=== PATIENT | female | born 1955 | race Caucasian/White ===

== ENCOUNTER 2016-11-02 15:12 | Emergency (ER) | payer OTHER, MEDICARE ==
[2016-11-02 15:19] VITALS: BMI 22.4
--- NOTE | 2016-11-02 16:17 | PDOC ---
History of Present Illness - General History Source: Patient Exam Limitations: No Limitations <Wendy Simpson - Last Filed: 11/02/16 18:15> <Zander Tejada - Last Filed: 11/02/16 19:52> - General Chief Complaint: Chest Pain Stated Complaint: CHEST PAIN Time Seen by Provider: 11/02/16 15:37 - History of Present Illness Initial Comments: CHIEF COMPLAINT: 61 y/o afebrile female with PMH hypothyroidism, anxiety, depression, fibromyalgia (on fentanyl patch and PO oxycodone) c/o chest pain since last night. HISTORY OF PRESENT ILLNESS: The patient states she had acid reflex last night and started feeling left sided chest pain. She states it's a constant dull pain that is worsened with deep inspiration. She states her reflux has subsided. She denies f/c, n/v/d, cough, SOB, abd pain, back pain, hematuria, dysuria. PCP is Dr. Pagan Vital signs on arrival are notable for BP of 91/50. REVIEW OF SYSTEMS: GENERAL/CONSTITUTIONAL: No fever/chills. No weakness. No weight change. HEAD, EYES, EARS, NOSE AND THROAT: No change in vision. No ear pain or discharge. No sore throat. CARDIOVASCULAR: +chest pain. No shortness of breath. RESPIRATORY: No cough, wheezing, or hemoptysis. GASTROINTESTINAL: No abd pain, nausea, vomiting, diarrhea. GENITOURINARY: No dysuria, frequency, or change in urination. MUSCULOSKELETAL: No joint or muscle swelling or pain. No neck or back pain. SKIN: No rash or easy bruising. NEUROLOGIC: No headache, vertigo, loss of consciousness, or loss of sensation. PHYSICAL EXAM: GENERAL: The patient is awake, alert, and fully oriented, in no acute distress. She is well appearing, ambulatory, in NAD or obvious discomfort. HEAD: Normal with no signs of trauma. ENT: Pupils equal, round and reactive to light, extraocular movements intact, sclera anicteric, conjunctiva clear. Neck supple. LUNGS: Clear to auscultation bilaterally. Normal excursion. No respiratory distress or use of accessory muscles. CV: RRR, S1/S2, no MRG. Cap refill < 2 sec. CHEST WALL: Reproducible chest pain with palpation of left sternal border ABDOMEN: Soft, non-distended, non-tender even to deep palpation, no hepatomegaly or splenomegaly, no masses. EXTREMITIES: Normal range of motion, no edema. NEUROLOGICAL: Normal speech, normal gait. CN II-XII grossly intact. PSYCH: Flat affect SKIN: Warm, dry, normal turgor, no rashes or lesions noted. (Wendy Simpson) Past History - Past Medical History Cardiac Disorders: No Diabetes: No GI Disorders: Yes (GERD) Psychiatric Problems: Yes (ANXIETY, DEPRESSION.) Seizures: No Thyroid Disease: Yes (PARTIAL THYROIDECTOMY 2012) - Surgical History Abdominal Surgery: Yes (gastric bypass) - Immunization History Immunization Up to Date: No - Psycho/Social/Smoking Cessation Hx Anxiety: Yes Suicidal Ideation: No Smoking Status: No Smoking History: Never smoked Have you smoked in the past 12 months: No Number of Cigarettes Smoked Daily: 0 Cigars Per Day: 0 Information on smoking cessation initiated: No Hx Alcohol Use: No Drug/Substance Use Hx: No Substance Use Type: None Hx Substance Use Treatment: No <Wendy Simpson - Last Filed: 11/02/16 18:15> <Zander Tejada - Last Filed: 11/02/16 19:52> - Past Medical History Allergies/Adverse Reactions: Allergies Allergy/AdvReac Type Severity Reaction Status Date / Time No Known Drug Allergies Allergy Verified 11/02/16 15:16 Home Medications: Ambulatory Orders Clonazepam [KlonoPIN] 1 mg PO BID 07/13/13 Lactulose 10 gm PO TID PRN 07/13/13 Oxycodone HCl 15 mg PO BID 07/13/13 Polyethylene Glycol 3350 [Miralax 255 gm Btl -] 17 gm PO HS PRN 07/13/13 Trazodone HCl [Desyrel -] 200 mg PO HS 07/13/13 Multivitamins [Multivit ([facility] Form[facility])] 1 tab PO DAILY 07/27/14 FENTANYL 50mcg PATCH [DURAGESIC 50mcg PATCH -] 50 mcg TD Q2D 09/20/14 Thyroid,Pork [[place] Thyroid] 15 mg PO DAILY 09/20/14 Gabapentin 600 mg PO TID 11/02/16 Levofloxacin [Levaquin] 750 mg PO DAILY #5 tab 11/02/16 Venlafaxine HCl [Effexor -] 15 mg PO DAILY 11/02/16 Cardiac Specific PMH - Complaint Specific PMHX GERD: Yes <Wendy Simpson - Last Filed: 11/02/16 18:15> - Vital Signs Last Vital Signs Temp Pulse Resp BP Pulse Ox 98.4 F 76 18 93/58 96 11/02/16 18:34 11/02/16 19:03 11/02/16 18:34 11/02/16 19:03 11/02/16 18:34 Heart Score/ECG Review <Wendy Simpson - Last Filed: 11/02/16 18:15> <Zander Tejada - Last Filed: 11/02/16 19:52> - ECG Intrepretation Comment:: Twelve-lead EKG was performed and reviewed by Dr. Cuadra. There is normal sinus rhythm with a normal rate. The axis is normal. The intervals are normal. Possible anterior infarct, age undetermined Impression: Abnormal twelve-lead EKG (Wendy Simpson) ED Treatment Course - LABORATORY CBC & Chemistry Diagram: 11/02/16 15:55 11/02/16 16:00 <Wendy Simpson - Last Filed: 11/02/16 18:15> - LABORATORY CBC & Chemistry Diagram: 11/02/16 15:55 11/02/16 16:00 <Zander Tejada - Last Filed: 11/02/16 19:52> - ADDITIONAL ORDERS Additional order review: Laboratory Results 11/02/16 16:00 Sodium 138 Potassium 4.3 Chloride 101 Carbon Dioxide 31 Anion Gap 6 L BUN 29 H D Creatinine 0.7 Creat Clearance w eGFR > 60 Random Glucose 106 D Calcium 7.9 L Total Bilirubin 0.4 D AST 14 L ALT 15 D Alkaline Phosphatase 64 Creatine Kinase 53 Troponin I < 0.02 Total Protein 5.8 L Albumin 3.4 11/02/16 15:55 RBC 3.77 MCV 88.3 MCHC 33.5 RDW 14.7 MPV 8.8 Neutrophils % 85.0 H D Lymphocytes % 10.6 D Monocytes % 4.1 Eosinophils % 0.1 D Basophils % 0.2 - Medications Given in the ED: ED Medications Discontinued Medications Generic Name Dose Route Start Last Admin Trade Name Freq PRN Reason Stop Dose Admin Levofloxacin 100 mls @ 100 mls/hr 11/02/16 17:40 11/02/16 18:04 Levaquin 500 Mg Premixed Ivpb - IVPB 11/02/16 18:39 100 mls/hr ONCE ONE Administration Sodium Chloride 1,000 mls @ 1,000 mls/hr 11/02/16 17:40 11/02/16 18:04 Normal Saline - IV 11/02/16 18:39 1,000 mls/hr ASDIR STA Administration Progress Note <Wendy Simpson - Last Filed: 11/02/16 18:15> <Zander Tejada - Last Filed: 11/02/16 19:52> - Progress Note Progress Note: On re-assessment, patient sitting up in bed watching TV. vitals: T- 97.8 (orally ), b/p-98-64 left arm. No acute distress. Patient teaching on importance of rest and hydration. It was emphasized the importance of returning if symptoms worsened. Patient and demonstrated understanding by nodding head and repeating what was discussed. (Zander Tejada) Medical Decision Making <Wendy Simpson - Last Filed: 11/02/16 18:15> <Zander Tejada - Last Filed: 11/02/16 19:52> - Medical Decision Making A/P: 61 y/o afebrile female with left sided chest pain since last night. The pain is reproduced with palpation and deep inspiration. Plan is as follows: 1. EKG 2. Labs 3. CXR CXR IMPRESSION: Left mid and left lower field infiltrate. BUN - 29 Ordered IV fluids x 2, IV levaquin and blood cultures. I am signing this patient out to my colleague: TRISTAN Tejada In brief, this patient is being seen in the ED for a chief complaint of: left sided chest pain I have completed the initial assessment interview note and have ordered: labs, EKG, CXR I have reviewed the following results: all Pending results are: completion of fluids, IV abx and repeat vital Please call the PCP: Latasha Plan for disposition is as follows: Discharge provided vital signs are improved (Wendy Simpson) *DC/Admit/Observation/Transfer <Wendy Simpson - Last Filed: 11/02/16 18:15> - Discharge Dispostion Admit: No <Zander Tejada - Last Filed: 11/02/16 19:52> Diagnosis at time of Disposition: Community acquired pneumonia - Discharge Dispostion Disposition: HOME Condition at time of disposition: Improved - Prescriptions Prescriptions: Levofloxacin [Levaquin] 750 mg PO DAILY #5 tab - Referrals Referrals: Nathan Pagan MD [Primary Care Provider] - - Patient Instructions Printed Discharge Instructions: DI for Pneumonia -- Adult Additional Instructions: Discharge Instructions: -Take antibiotics as prescribed -Take Tylenol every 4 hours for fever/chills -Drink at least 8 glasses of water per day -Follow up with Dr. Pagan by the end of this week -Return to the ER immediately with any worsening or concerning symptoms Print Language: OCCITAN
--- NOTE | 2016-11-02 16:18 | PDOC ---
*Physical Exam - Vital Signs Last Vital Signs Temp Pulse Resp BP Pulse Ox 98.3 F 83 18 91/50 96 11/02/16 15:16 11/02/16 15:16 11/02/16 15:16 11/02/16 15:16 11/02/16 15:16 ED Treatment Course - LABORATORY CBC & Chemistry Diagram: 11/02/16 15:55 11/02/16 16:00 Medical Decision Making - Medical Decision Making 11/02/16 16:17 Patient seen with CRISTINE. I agree with the evaluation, assessment, and management as outlined with the following summary: 61y/o F chronic pain syndrome and fibromyalgia on opiates p/w atypical and reproducible chest pain. EKG nonischemic. Labs and CXR performed. If within normal limits, can have outpatient cardiac workup given low HEART score. *DC/Admit/Observation/Transfer Diagnosis at time of Disposition: Community acquired pneumonia - Discharge Dispostion Disposition: HOME Condition at time of disposition: Improved - Prescriptions Prescriptions: Levofloxacin [Levaquin] 750 mg PO DAILY #5 tab - Referrals Referrals: Nathan Pagan MD [Primary Care Provider] - - Patient Instructions Printed Discharge Instructions: DI for Pneumonia -- Adult Additional Instructions: Discharge Instructions: -Take antibiotics as prescribed -Take Tylenol every 4 hours for fever/chills -Drink at least 8 glasses of water per day -Follow up with Dr. Pagan by the end of this week -Return to the ER immediately with any worsening or concerning symptoms Print Language: LUX[place]BOURGISH
[2016-11-02 16:22] LABS: BASOPHIL 0.2 % (0-2.0); EOSINOPHIL 0.1 % (0-4.5); MCH 29.6 pg (25.7-33.7); MCHC 33.5 g/dl (32.0-36.0); MEAN CELL VOLUME 88.3 fl (80-96); MEAN PLT VOLUME 8.8 fl (7.5-11.1); PLATELET COUNT 143 K/MM3 (134-434); RDW 14.7 % (11.6-15.6); WHITE BLOOD COUNT 9.4 K/mm3 (4.0-10.0)
[2016-11-02 16:42] LABS: ALBUMIN 3.4 g/dl (3.4-5.0); ANION GAP 6 (8-16); CALCIUM 7.9 mg/dL (8.5-10.1); CO2 31 mmol/L (21-32); GLUCOSE,RANDOM 106 mg/dL (74-106)
[2016-11-02 16:48] LABS: ALK PHOS 64 U/L (45-117); BILIRUBIN,TOTAL 0.4 mg/dL (0.2-1.0); CREATININE 0.7 mg/dL (0.55-1.02); SGOT/AST 14 U/L (15-37); SGPT/ALT 15 U/L (12-78); TOT PROT 5.8 g/dl (6.4-8.2); TROPONIN I < 0.02 ng/ml (0.00-0.05)
[2016-11-02] MEDS ORDERED: LEVOFLOXACIN 500 MG IVPB 100 ML IVPB ONE ×2 (17:40→17:42)
[2016-11-02] MEDS ORDERED: SODIUM CHLORIDE 1,000 ML IV STA (17:40)
[2016-11-02 20:20] VITALS: BP 92/58; PULSE 75; TEMP 97.8
== END 2016-11-02 20:50 | disposition home or self-care (01) ==
LOC: JER 15:12
DX: J18.9 Pneumonia, unspecified organism (principal); M79.7 Fibromyalgia; F41.8 Other specified anxiety disorders; E03.9 Hypothyroidism, unspecified
CPT/HCPCS: 36415; 71020-TC; 80053; 82550; 84484; 85025; 87040; 96365; 99285-25

== ENCOUNTER 2017-01-05 18:28 | Emergency (ER) | payer OTHER, MEDICARE ==
[2017-01-05 18:39] VITALS: BP 96/55; PULSE 66; TEMP 97.9; BMI 24.2
--- NOTE | 2017-01-05 19:50 | PDOC ---
[id number]: No Limitations - History of Present Illness Initial Comments: 01/05/17 19:59 The patient is a 61 year old female presenting with her , with a significant past medical history of hypothyroidism, anxiety, depression, fibromyalgia (on fentanyl patch and PO oxycodone), who presents to the emergency department with loss of appetite and generalized weakness for the past month. The patient's states that the patient has been depressed due to a life change thats currently going on with the selling of their home. 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 Since leaving her job her depression has worsened. The patient denies chest pain, shortness of breath, headache and dizziness. Denies fever, chills, nausea, vomit, diarrhea and constipation. Denies dysuria, frequency, urgency and hematuria. Allergies: None Past surgical history: Gastric bypass (14 years ago), thyroectomy Social history: No alcohol, tobacco or drug use reported PMD - Dr. Nathan Pagan <John Perry - Last Filed: 01/05/17 20:02> <Penny Olivera - Last Filed: 01/06/17 02:19> - General Chief Complaint: Loss of Appetite Stated Complaint: WEAKNESS Time Seen by Provider: 01/05/17 19:12 Past History <John Perry - Last Filed: 01/05/17 20:02> - Past Medical History Cardiac Disorders: No Diabetes: No GI Disorders: Yes (GERD) Psychiatric Problems: Yes (ANXIETY, DEPRESSION.) Seizures: No Thyroid Disease: Yes (PARTIAL THYROIDECTOMY 2012) Other medical history: fibromyalgia - Surgical History Abdominal Surgery: Yes (gastric bypass) - Immunization History Immunization Up to Date: No - Psycho/Social/Smoking Cessation Hx Anxiety: Yes Suicidal Ideation: No Smoking Status: No Smoking History: Never smoked Have you smoked in the past 12 months: No Number of Cigarettes Smoked Daily: 0 Cigars Per Day: 0 Information on smoking cessation initiated: No Hx Alcohol Use: No Drug/Substance Use Hx: No Substance Use Type: None Hx Substance Use Treatment: No <Penny Olivera - Last Filed: 01/06/17 02:19> - Past Medical History Allergies/Adverse Reactions: Allergies Allergy/AdvReac Type Severity Reaction Status Date / Time No Known Drug Allergies Allergy Verified 01/05/17 18:36 Home Medications: Ambulatory Orders Clonazepam [KlonoPIN] 1 mg PO BID 07/13/13 Trazodone HCl [Desyrel -] 200 mg PO HS 07/13/13 FENTANYL 50mcg PATCH [DURAGESIC 50mcg PATCH -] 50 mcg TD Q2D 09/20/14 Gabapentin 600 mg PO TID 11/02/16 Review of Systems - Review of Systems Able to Perform ROS?: Yes Comments:: 01/05/17 19:59 GENERAL/CONSTITUTIONAL: (+)Generalized weakness and loss of appetite. No fever or chills. HEAD, EYES, EARS, NOSE AND THROAT: No change in vision. No ear pain or discharge. No sore throat. CARDIOVASCULAR: No chest pain or shortness of breath RESPIRATORY: No cough, wheezing, or hemoptysis. GASTROINTESTINAL: No nausea, vomiting, diarrhea or constipation. GENITOURINARY: No dysuria, frequency, or change in urination. MUSCULOSKELETAL: No joint or muscle swelling or pain. No neck or back pain. SKIN: No rash NEUROLOGIC: No headache, vertigo, loss of consciousness, or change in strength/ sensation. ENDOCRINE: No increased thirst. No abnormal weight change HEMATOLOGIC/LYMPHATIC: No anemia, easy bleeding, or history of blood clots. ALLERGIC/IMMUNOLOGIC: No hives or skin allergy. <John Perry - Last Filed: 01/05/17 20:02> *Physical Exam - Vital Signs Last Vital Signs Temp Pulse Resp BP Pulse Ox 97.9 F 66 18 96/55 96 01/05/17 18:36 01/05/17 18:36 01/05/17 18:36 01/05/17 18:36 01/05/17 18:36 - Physical Exam Comments: 01/05/17 20:00 GENERAL: Awake, alert, and fully oriented, in no acute distress HEAD: No signs of trauma, normocephalic, atraumatic EYES: PERRLA, EOMI, sclera anicteric, conjunctiva clear ENT: Auricles normal inspection, hearing grossly normal, nares patent, oropharynx clear without exudates. Moist mucosa NECK: Normal ROM, supple, no lymphadenopathy, JVD, or masses LUNGS: No distress, speaks full sentences, clear to auscultation bilaterally HEART: Regular rate and rhythm, normal S1 and S2, no murmurs, rubs or gallops, peripheral pulses normal and equal bilaterally. ABDOMEN: Soft, nontender, normoactive bowel sounds. No guarding, no rebound. No masses EXTREMITIES: Normal inspection, Normal range of motion, no edema. No clubbing or cyanosis. NEUROLOGICAL: Cranial nerves II through XII grossly intact. Normal speech, normal gait, no focal sensorimotor deficits SKIN: Warm, Dry, normal turgor, no rashes or lesions noted. PSYCHIATRIC: (+) Flat affect. <John Perry - Last Filed: 01/05/17 20:02> - Vital Signs Last Vital Signs Temp Pulse Resp BP Pulse Ox 97.9 F 66 18 96/55 96 01/05/17 18:36 01/05/17 18:36 01/05/17 18:36 01/05/17 18:36 01/05/17 18:36 <Penny Olivera - Last Filed: 01/06/17 02:19> ED Treatment Course - LABORATORY CBC & Chemistry Diagram: 01/05/17 20:52 01/05/17 20:52 <Penny Olivera - Last Filed: 01/06/17 02:19> Medical Decision Making - Medical Decision Making 01/06/17 02:16 61-year-old female with a long-standing history of depression presents because of loss of appetite and thirst for the past several weeks. According to the family. She's lost 20 pounds over the past month. Patient does have a primary care physician, Dr. Nathan Pagan and she also has a psychiatrist. She has no active suicidal or homicidal ideology Labs were reviewed and patient received IV fluids. Patient did not have any significant anemia, electrolyte derangement. Renal function. Creatinine and glucose were within normal limits Spoke with the patient and her family encouraged the pt to talk to her primary care physician to discuss medications to boost her appetite. Also recommended she follow up with her psychiatrist to see if she would need further intervention as loss of appetite is probably a result of her deepening depression <Penny Olivera - Last Filed: 01/06/17 02:19> *DC/Admit/Observation/Transfer - Attestations Scribe Attestion: 01/05/17 20:00 Documentation prepared by John Perry, acting as medical advisor for Penny Olivera MD <John Perry - Last Filed: 01/05/17 20:02> <Penny Olivera - Last Filed: 01/06/17 02:19> Diagnosis at time of Disposition: Loss of appetite - Discharge Dispostion Disposition: HOME Condition at time of disposition: Stable - Referrals Referrals: Nathan Pagan MD [Primary Care Provider] - - Patient Instructions Printed Discharge Instructions: DI for Depression -- Adult, DI for Poor Appetite Additional Instructions: please see your psychiatrist and also your regular medical physician
[2017-01-05] MEDS ORDERED: SODIUM CHLORIDE 1,000 ML IV STA (20:12)
[2017-01-05 21:37] LABS: EOSINOPHIL 1.3 % (0-4.5); MCHC 32.9 g/dl (32.0-36.0); MEAN CELL VOLUME 88.3 fl (80-96); MEAN PLT VOLUME 9.3 fl (7.5-11.1); NEUTROPHILS 49.6 % (42.8-82.8); PLATELET COUNT 176 K/MM3 (134-434); RDW 15.5 % (11.6-15.6); WHITE BLOOD COUNT 4.7 K/mm3 (4.0-10.0)
[2017-01-05 22:04] LABS: ALBUMIN 3.8 g/dl (3.4-5.0); ANION GAP 8 (8-16); CALCIUM 8.7 mg/dL (8.5-10.1); CO2 34 mmol/L (21-32); CREATININE 0.5 mg/dL (0.55-1.02); GLUCOSE,RANDOM 80 mg/dL (74-106); SGOT/AST 14 U/L (15-37); SGPT/ALT 13 U/L (12-78)
[2017-01-05 22:06] LABS: ALK PHOS 67 U/L (45-117); BILIRUBIN,TOTAL 0.2 mg/dL (0.2-1.0); TOT PROT 6.7 g/dl (6.4-8.2)
--- NOTE | 2017-01-07 17:35 | EKG ---
Test Reason : Blood Pressure : / mmHG Vent. Rate : 053 BPM Atrial Rate : 053 BPM P-R Int : 178 ms QRS Dur : 078 ms QT Int : 450 ms P-R-T Axes : 058 -02 026 degrees QTc Int : 422 ms POOR DATA QUALITY, INTERPRETATION MAY BE ADVERSELY AFFECTED SINUS BRADYCARDIA LOW VOLTAGE QRS BORDERLINE ECG WHEN COMPARED WITH ECG OF 24-SEP-2015 05:16, NO SIGNIFICANT CHANGE WAS FOUND Confirmed by MATI YU, SUMMER ([id number]) on 01/07/2017 5:35:13 PM Referred By: Confirmed By:SUMMER THORNE MD
== END 2017-01-05 22:54 | disposition home or self-care (01) ==
LOC: JER 18:28
PROC: 3E0337Z Introduction of Electrolytic and Water Balance Substance into Peripheral Vein, Percutaneous Approach (ICD-10-PCS; principal; 2017-01-05)
DX: F41.9 Anxiety disorder, unspecified (principal); E03.9 Hypothyroidism, unspecified; M79.7 Fibromyalgia; K21.9 Gastro-esophageal reflux disease without esophagitis
CPT/HCPCS: 36415; 80053; 85025; 93005; 93010; 96360; 99282-25

== ENCOUNTER 2017-03-24 04:17 | Inpatient (IN) | payer OTHER, MEDICARE ==
--- NOTE | 2017-03-24 04:27 | PDOC ---
History of Present Illness - General History Source: Patient Exam Limitations: No Limitations - History of Present Illness Initial Comments: 03/24/17 04:43 The patient is a 61 year old female presenting with her , with a significant past medical history of hypothyroidism, anxiety, depression, fibromyalgia (on fentanyl patch and PO oxycodone), who presents to the emergency department with abdominal pain that began yesterday at 7PM. Pts last meal was at 6PM and she states that she was not able to eat much. She denies chest pain, shortness of breath, headache, or dizziness. Denies fever , chills, nausea, vomiting, diarrhea, or constipation. Denies dysuria, frequency , urgency, or hematuria. Allergies: None Past surgical history: Gastric bypass (14 years ago), thyroidectomy Social history: No alcohol, tobacco or drug use reported PCP: Dr. Nathan Pagan <Karen Childress - Last Filed: 03/24/17 06:49> - General History Source: Patient <John Barillas - Last Filed: 03/24/17 19:12> - General Stated Complaint: ABD PAIN Time Seen by Provider: 03/24/17 04:27 Past History <Karen Childress - Last Filed: 03/24/17 06:49> - Past Medical History Cardiac Disorders: No Diabetes: No GI Disorders: Yes (GERD) Psychiatric Problems: Yes (ANXIETY, DEPRESSION.) Seizures: No Thyroid Disease: Yes (PARTIAL THYROIDECTOMY 2012) - Surgical History Abdominal Surgery: Yes (gastric bypass) - Immunization History Immunization Up to Date: No - Psycho/Social/Smoking Cessation Hx Anxiety: Yes Suicidal Ideation: No Smoking Status: No Smoking History: Never smoked Have you smoked in the past 12 months: No Number of Cigarettes Smoked Daily: 0 Cigars Per Day: 0 Hx Alcohol Use: No Drug/Substance Use Hx: No Substance Use Type: None Hx Substance Use Treatment: No <John Barillas - Last Filed: 03/24/17 19:12> - Past Medical History Allergies/Adverse Reactions: Allergies Allergy/AdvReac Type Severity Reaction Status Date / Time No Known Drug Allergies Allergy Verified 03/24/17 05:13 Home Medications: Ambulatory Orders Clonazepam [KlonoPIN] 1 mg PO BID 07/13/13 Trazodone HCl [Desyrel -] 200 mg PO HS 07/13/13 FENTANYL 50mcg PATCH [DURAGESIC 50mcg PATCH -] 50 mcg TD Q2D 09/20/14 Gabapentin 600 mg PO TID 11/02/16 Desipramine HCl [Norpramin -] 25 mg PO DAILY 03/24/17 Oxycodone HCl [Oxycodone HCl ER] 15 mg PO DAILY 03/24/17 Review of Systems - Review of Systems Able to Perform ROS?: Yes Comments:: 03/24/17 04:43 CONSTITUTIONAL: Absent: fever, no chills, no fatigue EYES: Absent: visual changes ENT: Absent: ear pain, no sore throat CARDIOVASCULAR: Absent: chest pain, no palpitations RESPIRATORY: Absent: cough, no SOB GI: Present: abdominal pain Absent: no nausea, no vomiting, no constipation, no diarrhea GENITOURINARY: Absent: dysuria, no frequency, no hematuria MUSKULOSKELETAL: Absent: back pain, no arthralgia, no myalgia SKIN: Absent: rash NEURO: Absent: headache <Karen Childress - Last Filed: 03/24/17 06:49> *Physical Exam - Vital Signs Last Vital Signs Temp Pulse Resp BP Pulse Ox 101 H 16 119/86 100 03/24/17 04:38 03/24/17 04:38 03/24/17 04:38 03/24/17 04:38 - Physical Exam Comments: 03/24/17 04:44 GENERAL: Well-appearing, well-nourished. +Moderate distress HEENT: Normocephalic, atraumatic. PERRL, EOM intact. CARDIOVASCULAR: Normal S1, S2. Regular rate and rhythm. PULMONARY: Clear to auscultation bilaterally. ABDOMEN: Soft, non-distended, non-tender. EXTREMITIES: Normal ROM in all four extremities. No gross deformities. SKIN: Warm, dry. No rash NEUROLOGICAL: No focal neurological deficits. <Karen Childress - Last Filed: 03/24/17 06:49> Heart Score/ECG Review - ECG Intrepretation Comment:: 03/24/17 06:50 EKG was reviewed by Dr. Barillas at 6:44. Impression: Normal sinus rhythm. Septal infarct, age undetermined. <Karen Childress - Last Filed: 03/24/17 06:49> ED Treatment Course - LABORATORY CBC & Chemistry Diagram: 03/24/17 04:52 03/24/17 04:52 - Medications Given in the ED: ED Medications Discontinued Medications Generic Name Dose Route Start Last Admin Trade Name Naresh GRAF Reason Stop Dose Admin Morphine Sulfate 6 mg 03/24/17 04:32 03/24/17 04:36 Morphine Injection - IVPUSH 03/24/17 04:33 6 mg ONCE ONE Administration <Karen Childress - Last Filed: 03/24/17 06:49> - LABORATORY CBC & Chemistry Diagram: 03/24/17 04:52 03/24/17 04:52 <John Barillas - Last Filed: 03/24/17 19:12> Medical Decision Making - Medical Decision Making 03/24/17 06:35 Dr. Aguilar was paged and notified via phone service. <Karen Childress - Last Filed: 03/24/17 06:49> - Medical Decision Making 03/24/17 19:12 Dr. Barillas: The scribe's documentation has been prepared under my direction and personally reviewed by me in its entirery. I confirm that the note above accurately reflects all work, treatment, procedures, and medical decision making performed by me. <John Barillas - Last Filed: 03/24/17 19:12> *DC/Admit/Observation/Transfer - Attestations Scribe Attestion: 03/24/17 04:45 Documentation prepared by Karen Childress, acting as vice president medical affairs for John Barillas MD. <Karen Childress - Last Filed: 03/24/17 06:49> - Discharge Dispostion Admit: Yes <John Barillas - Last Filed: 03/24/17 19:12> Diagnosis at time of Disposition: Constipated Qualifiers: Constipation type: unspecified constipation type Qualified Code(s): K59.00 - Constipation, unspecified Pneumonia Qualifiers: Pneumonia type: due to unspecified organism Laterality: bilateral Lung location : lower lobe of lung Qualified Code(s): J18.9 - Pneumonia, unspecified organism - Referrals
[2017-03-24] MEDS ORDERED: PANTOPRAZOLE SODIUM 40 MG in SODIUM CHLORIDE 100 ML IVPB ONE (04:32)
[2017-03-24] MEDS ORDERED: morphine CARPU-JECT 2 MG/1 ML DISP.SYRIN IVPUSH ONE (04:32)
[2017-03-24] MEDS ORDERED: ONDANSETRON 4 MG/2 ML VIAL IVPUSH STA (04:32)
[2017-03-24] MEDS ORDERED: SODIUM CHLORIDE 1,000 ML IV STA (04:33)
[2017-03-24] MEDS ORDERED: morphine CARPU-JECT 2 MG/1 ML DISP.SYRIN ONE (04:33)
[2017-03-24] MEDS ORDERED: morphine CARPU-JECT 4 MG/1 ML DISP.SYRIN ONE (04:33)
[2017-03-24] MEDS ORDERED: PANTOPRAZOLE SODIUM 100 ML IVPB ONE (04:42)
[2017-03-24] MEDS ORDERED: ONDANSETRON 4 MG/2 ML VIAL ONE (04:42)
[2017-03-24] MEDS ORDERED: HYDROmorphone HCL CARPU-JECT 1 MG/1 ML DISP.SYRIN IVPUSH ONE (04:48)
[2017-03-24] MEDS ORDERED: HYDROmorphone HCL CARPU-JECT 1 MG/1 ML DISP.SYRIN ONE (05:00)
[2017-03-24 05:06] LABS: BASOPHIL 0.4 % (0-2.0); EOSINOPHIL 0.9 % (0-4.5); MCH 29.1 pg (25.7-33.7); MCHC 32.4 g/dl (32.0-36.0); MEAN CELL VOLUME 89.6 fl (80-96); MEAN PLT VOLUME 8.2 fl (7.5-11.1); NEUTROPHILS 74.9 % (42.8-82.8); PLATELET COUNT 344 K/MM3 (134-434); RDW 14.9 % (11.6-15.6); WHITE BLOOD COUNT 7.6 K/mm3 (4.0-10.0)
[2017-03-24 05:20] LABS: INR 1.09 (0.82-1.09)
[2017-03-24 05:28] LABS: ALBUMIN 3.4 g/dl (3.4-5.0); ANION GAP 9 (8-16); BILIRUBIN,TOTAL 0.3 mg/dL (0.2-1.0); CALCIUM 8.9 mg/dL (8.5-10.1); CO2 30 mmol/L (21-32); CREATININE 0.6 mg/dL (0.55-1.02); GLUCOSE,RANDOM 111 mg/dL (74-106); SGOT/AST 24 U/L (15-37); SGPT/ALT 19 U/L (12-78); TOT PROT 7.3 g/dl (6.4-8.2)
[2017-03-24 05:31] LABS: ALK PHOS 86 U/L (45-117); TROPONIN I < 0.02 ng/ml (0.00-0.05)
[2017-03-24 05:37] LABS: URINE APPEARANCE CLEAR; URINE BILIRUBIN NEGATIVE (NEGATIVE); URINE BLOOD NEGATIVE (NEGATIVE); URINE COLOR DKYELLOW; URINE GLUCOSE (UA) NEGATIVE (NEGATIVE); URINE KETONE TRACE (NEGATIVE); URINE NITRITE NEGATIVE (NEGATIVE); URINE UROBILINOGEN NEGATIVE mg/dL (0.2-1.0)
[2017-03-24 05:41] LABS: URINE LEUK ESTERASE 1+ (NEGATIVE); URINE PROTEIN 1+ (NEGATIVE)
[2017-03-24 05:46] LABS: URINE MUCUS MANY; URINE RBC 13 /hpf (0-3); URINE WBC 10 /hpf (3-5)
[2017-03-24] MEDS ORDERED: AZITHROMYCIN IVPB 500 MG in DEXTROSE 5%-WATER - 250 ML IVPB ONE (06:31)
[2017-03-24] MEDS ORDERED: AZITHROMYCIN IVPB 250 ML IVPB ONE (06:38)
[2017-03-24] MEDS ORDERED: cefTRIAXone SODIUM 1 GM VIAL ONE (06:38)
--- NOTE | 2017-03-24 09:15 | HP ---
Admitting History and Physical - Admission History of Present Illness: 61 year old female presenting with her , with a significant past medical history of hypothyroidism, anxiety, depression, fibromyalgia (on fentanyl patch and PO oxycodone), who presents to the emergency department with abdominal pain that began yesterday at 7PM. Pts last meal was at 6PM and she states that she was not able to eat much. - Past Medical History SHOE PLANNER: No: CVA Cardiovascular: No: AFIB, Deep Vein Thrombosis, HTN Pulmonary: No: COPD Gastrointestinal: Yes: Constipation, Diverticulitis, Diverticulosis, GERD, Hiatal Hernia. No: Cancer Renal/: No: Renal Inusuff Musculoskeletal: Yes: Chronic low back pain, Other (PMR) Rheumatology: Yes: Fibromyalgia Endocrine: Yes: Hypothyroidism - Past Surgical History Past Surgical History: Yes: Bariatric Surgery Additional Past Surgical History: PARTIAL THYROIDECTOMY - Smoking History Smoking history: Never smoked Have you smoked in the past 12 months: No Aproximately how many cigarettes per day: 0 - Alcohol/Substance Use Hx Alcohol Use: No Home Medications - Allergies Allergies/Adverse Reactions: Allergies Allergy/AdvReac Type Severity Reaction Status Date / Time No Known Drug Allergies Allergy Verified 03/24/17 05:13 - Home Medications Home Medications: Ambulatory Orders Clonazepam [KlonoPIN] 1 mg PO BID 07/13/13 Trazodone HCl [Desyrel -] 200 mg PO HS 07/13/13 FENTANYL 50mcg PATCH [DURAGESIC 50mcg PATCH -] 50 mcg TD Q2D 09/20/14 Gabapentin 600 mg PO TID 11/02/16 Desipramine HCl [Norpramin -] 25 mg PO DAILY 03/24/17 Oxycodone HCl [Oxycodone HCl ER] 15 mg PO DAILY 03/24/17 Review of Systems - Review of Systems Cardiovascular: denies: Chest Pain Respiratory: denies: Cough, SOB Gastrointestinal: reports: Abdominal Pain, Constipation, Nausea. denies: Vomiting Neurological: denies: Change in LOC, Confusion, Dizziness, Headache Physical Examination Vital Signs: Vital Signs Temperature 97.7 F 03/24/17 07:02 Pulse Rate 85 03/24/17 07:45 Respiratory Rate 17 03/24/17 07:02 Blood Pressure 109/68 03/24/17 07:45 O2 Sat by Pulse Oximetry (%) 96 07/19/17 07:45 Cardiovascular: Yes: Regular Rate and Rhythm Respiratory: Yes: Regular, CTA Bilaterally Gastrointestinal: Yes: Normal Bowel Sounds, Soft, Tenderness (LUQ/LEFT FLANK) Renal/: No: CVA Tenderness - Left, CVA Tenderness - Right Edema: No Neurological: Yes: Alert, Oriented Imaging - Results Cat Scan: Report Reviewed Problem List - Problems (1) Constipated Assessment/Plan: ENEMA RELISTOR GI CONSULT NPO' IVF Code(s): K59.00 - CONSTIPATION, UNSPECIFIED Qualifiers: Constipation type: unspecified constipation type Qualified Code(s): K59.00 - Constipation, unspecified (2) Pneumonia Assessment/Plan: NO SYMPTOMS PULM CONSULT NEBS INCENTIVE SPIROMETRY Code(s): J18.9 - PNEUMONIA, UNSPECIFIED ORGANISM Qualifiers: Pneumonia type: due to unspecified organism Laterality: bilateral Lung location: lower lobe of lung Qualified Code(s): J18.9 - Pneumonia, unspecified organism (3) Fibromyalgia Assessment/Plan: PAIN MEDS DISCUSSED Code(s): M79.7 - FIBROMYALGIA (4) Hypothyroid Assessment/Plan: check tft endo Code(s): E03.9 - HYPOTHYROIDISM, UNSPECIFIED
[2017-03-24] MEDS ORDERED: DESIPRAMINE HCL 25 MG TABLET PO SCH (10:00)
[2017-03-24] MEDS ORDERED: fentaNYL 50mcg/hr PATCH.TD72 TD SCH (10:00)
[2017-03-24] MEDS: D5-1/2NS+20 MEQ KCL - 1,000 ML IV SCH (10:08)
[2017-03-24] MEDS: HEPARIN NA (PORCINE) 5,000 UNITS/ML 1ML VIAL SQ SCH ×2 (10:10→22:07)
[2017-03-24] MEDS: PANTOPRAZOLE SODIUM 100 ML IVPB SCH (10:11)
[2017-03-24] MEDS: clonazePAM 0.5 MG TABLET PO SCH ×2 (10:11→22:07)
[2017-03-24] MEDS: CEFTRIAXONE 50 ML IVPB SCH (10:12)
[2017-03-24] MEDS: Methylnaltrexone Bromide 12 MG/0.6 ML KIT SQ SCH (10:40)
[2017-03-24 10:46] LABS: FREE T4 0.89 ng/dl (0.76-1.46); THYROID STIMULATING HORMONE 2.56 uIU/ml (0.358-3.74)
[2017-03-24] MEDS: ALBUTEROL SO4 2.5/IPRATROPIUM 0.5 INH SOL 3 ML VIAL.NEB. NEB SCH ×3 (12:07→23:53)
[2017-03-24] MEDS: GABAPENTIN 300 MG CAPSULE (FP) PO SCH ×2 (13:58→22:08)
--- NOTE | 2017-03-24 14:57 | EKG ---
Test Reason : Blood Pressure : / mmHG Vent. Rate : 076 BPM Atrial Rate : 076 BPM P-R Int : 156 ms QRS Dur : 088 ms QT Int : 384 ms P-R-T Axes : 059 011 042 degrees QTc Int : 432 ms NORMAL SINUS RHYTHM SEPTAL INFARCT , AGE UNDETERMINED ABNORMAL ECG WHEN COMPARED WITH ECG OF 05-JAN-2017 21:12, NO SIGNIFICANT CHANGE WAS FOUND Confirmed by CHRIS TATE MD ([id number]) on 03/24/2017 2:57:24 PM Referred By: Confirmed By:CHRIS TATE MD
--- NOTE | 2017-03-24 14:58 | CON.PULM ---
Consult Consult Specialty:: PULMONARY Referred by:: BONG Reason for Consultation:: SOB - History of Present Illness Chief Complaint: ABD PAIN History of Present Illness: 61 year old female presenting with her , with a significant past medical history of hypothyroidism, anxiety, depression, fibromyalgia (on fentanyl patch and PO oxycodone), who presents to the emergency department with abdominal pain that began yesterday at 7PM. Pts last meal was at 6PM and she states that she was not able to eat much. The pain started in left upper quadrant and radiated to the back. She states she vomited bile. She was told she had pneumonia. Admits to 30 lbs weight loss in 6-8 months. Distant smoker,quit years ago. 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 No: Cancer Renal/: No: Renal Inusuff Musculoskeletal: Yes: Chronic low back pain, Other (PMR) Rheumatology: Yes: Fibromyalgia Endocrine: Yes: Hypothyroidism - Past Surgical History Past Surgical History: Yes: Bariatric Surgery - Alcohol/Substance Use Hx Alcohol Use: No - Smoking History Smoking history: Never smoked Have you smoked in the past 12 months: No Aproximately how many cigarettes per day: 0 Home Medications - Allergies Allergies/Adverse Reactions: Allergies Allergy/AdvReac Type Severity Reaction Status Date / Time No Known Drug Allergies Allergy Verified 03/24/17 05:13 - Home Medications Home Medications: Ambulatory Orders Clonazepam [KlonoPIN] 1 mg PO BID 07/13/13 Trazodone HCl [Desyrel -] 200 mg PO HS 07/13/13 FENTANYL 50mcg PATCH [DURAGESIC 50mcg PATCH -] 50 mcg TD Q2D 09/20/14 Gabapentin 600 mg PO TID 11/02/16 Desipramine HCl [Norpramin -] 25 mg PO DAILY 03/24/17 Oxycodone HCl [Oxycodone HCl ER] 15 mg PO DAILY 03/24/17 Family Disease History - Family Disease History Family History: Unremarkable Review of Systems - Review of Systems Constitutional: reports: Loss of Appetite, Unintentional Wgt. Loss, Weakness. denies: Fever Eyes: denies: Blind Spots HENT: denies: Difficult Swallowing Neck: denies: Decreased ROM Cardiovascular: denies: Chest Pain Respiratory: reports: Exercise Intolerance, SOB on Exertion. denies: Cough, Hemoptysis, Orthopnea, SOB Gastrointestinal: reports: Abdominal Pain, Bloating, Constipation, Vomiting Genitourinary: reports: No Symptoms Breasts: reports: No Symptoms Reported Musculoskeletal: reports: Joint Pain, Muscle Pain Integumentary: reports: No Symptoms Neurological: reports: No Symptoms Physical Exam Vital Sings: Vital Signs Temperature 98.2 F 03/24/17 14:50 Pulse Rate 81 03/24/17 14:50 Respiratory Rate 20 03/24/17 14:50 Blood Pressure 115/62 03/24/17 14:50 O2 Sat by Pulse Oximetry (%) 96 03/24/17 07:45 Constitutional: Yes: Calm Eyes: Yes: EOM Intact HENT: Yes: Normocephalic Neck: Yes: Trachea Midline Cardiovascular: Yes: Regular Rate and Rhythm, S2 ...Breath Sounds: RLL Rales Gastrointestinal: Yes: Soft Edema: No Neurological: Yes: Alert Labs: reviewed Imaging - Results Chest X-ray: Image Reviewed Cat Scan: Image Reviewed Problem List - Problems (1) Constipated Code(s): K59.00 - CONSTIPATION, UNSPECIFIED Qualifiers: Constipation type: unspecified constipation type Qualified Code(s): K59.00 - Constipation, unspecified (2) Fibromyalgia Code(s): M79.7 - FIBROMYALGIA (3) Community acquired pneumonia Code(s): J18.9 - PNEUMONIA, UNSPECIFIED ORGANISM (4) Loss of appetite Code(s): R63.0 - ANOREXIA (5) Weight loss Code(s): R63.4 - ABNORMAL WEIGHT LOSS (6) Abdominal pain Code(s): R10.9 - UNSPECIFIED ABDOMINAL PAIN Assessment/Plan ABDOMINAL PAIN LIKELY DUE TO OPIATE INDUCED CHRONIC CONSTIPATION ABD CT REVEALS MINIMAL FAINT PATCHY INFILTRATE RLL ( NO SX TO SUGGEST PNEUMONIA) FMR/ANXIETY DEPRESSIVE DISORDER HYPOTHYROIDISM CONSIDER GI EVAL FOR PROGRESSIVE WEIGHT LOSS AND CHRONIC OPIATE INDUCED CONSTIPATION NO OBJECTION TO BRIEF COURSE OF ANTIBIOTICS/BRONCHODILSATORS WILL FOLLOW THANK YOU FOR THE CONSULT Mauro TREVINO MD
[2017-03-24 17:21] VITALS: BMI 23.1
--- NOTE | 2017-03-24 20:03 | CON.GI ---
Consult Consult Specialty:: GI Referred by:: DR DON Reason for Consultation:: abdominal pain - History of Present Illness Chief Complaint: abdominal pain History of Present Illness: 61 F with h/o gastric bypass 2002, anxiety, anorexia, fibromyalgia on narcotics for pain, admitted for 24 hours abdominal pain. She states that the L side of her abdomen became distended and was tender. She states she has a h/o diverticulitis. She is s/p thyroidectomy and is on synthroid She states she has been constipated which she relates to her narcotic use. 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 No: Cancer Renal/: No: Renal Inusuff Musculoskeletal: Yes: Chronic low back pain, Other (PMR) Rheumatology: Yes: Fibromyalgia Endocrine: Yes: Hypothyroidism - Past Surgical History Past Surgical History: Yes: Bariatric Surgery - Alcohol/Substance Use Hx Alcohol Use: No - Smoking History Smoking history: Never smoked Have you smoked in the past 12 months: No Aproximately how many cigarettes per day: 0 Home Medications - Allergies Allergies/Adverse Reactions: Allergies Allergy/AdvReac Type Severity Reaction Status Date / Time No Known Drug Allergies Allergy Verified 03/24/17 05:13 - Home Medications Home Medications: Ambulatory Orders Clonazepam [KlonoPIN] 1 mg PO BID 07/13/13 Trazodone HCl [Desyrel -] 200 mg PO HS 07/13/13 FENTANYL 50mcg PATCH [DURAGESIC 50mcg PATCH -] 50 mcg TD Q2D 09/20/14 Gabapentin 600 mg PO TID 11/02/16 Desipramine HCl [Norpramin -] 25 mg PO DAILY 03/24/17 Oxycodone HCl [Oxycodone HCl ER] 15 mg PO DAILY 03/24/17 Physical Exam-GI Vital Signs: Vital Signs Temperature 98.2 F 03/24/17 14:50 Pulse Rate 81 03/24/17 14:50 Respiratory Rate 20 03/24/17 14:50 Blood Pressure 115/62 03/24/17 14:50 O2 Sat by Pulse Oximetry (%) 96 03/24/17 07:45 Constitutional: Yes: Well Nourished, Thin Cardiovascular: Yes: Regular Rate and Rhythm Respiratory: Yes: CTA Bilaterally Gastrointestinal Inspection: Yes: WNL ...Auscultate: Yes: Normoactive Bowel Sounds, Hypoactive Bowel Sounds ...Palpate: Yes: Soft, Tenderness Labs: INR, PTT INR 1.09 (0.82-1.09) 03/24/17 04:52 CBC, BMP 03/24/17 04:52 03/24/17 04:52 Hepatic Panel Total Bilirubin 0.3 mg/dL (0.2-1.0) D 03/24/17 04:52 AST 24 U/L (15-37) D 03/24/17 04:52 ALT 19 U/L (12-78) D 03/24/17 04:52 Alkaline Phosphatase 86 U/L (45-117) D 03/24/17 04:52 Albumin 3.4 g/dl (3.4-5.0) 03/24/17 04:52 Imaging - Results Cat Scan: Report Reviewed (large amount of fecal residue noted throughoout colon ) Assessment/Plan Patient with possible fecal obstipation She likely as a component of adhesions as well Agree with relistor and enemas. Will add lactulose and mirala Advice given re: management of adhesions as opt with diet and cotinuing laxatives
[2017-03-24] MEDS ORDERED: traZODone HCL 50 MG TABLET (FP) ONE (21:39)
[2017-03-24] MEDS: traZODone HCL 100 MG TABLET (FP) PO SCH (22:06)
[2017-03-24] MEDS: DESIPRAMINE HCL 25 MG TABLET PO SCH (22:09)
[2017-03-25] MEDS: GABAPENTIN 300 MG CAPSULE (FP) PO SCH ×3 (06:00→21:18)
[2017-03-25] MEDS: ALBUTEROL SO4 2.5/IPRATROPIUM 0.5 INH SOL 3 ML VIAL.NEB. NEB SCH ×4 (06:52→23:05)
[2017-03-25 07:20] LABS: BASOPHIL 0.8 % (0-2.0); EOSINOPHIL 3.4 % (0-4.5); MCH 29.8 pg (25.7-33.7); MCHC 32.9 g/dl (32.0-36.0); MEAN CELL VOLUME 90.5 fl (80-96); MEAN PLT VOLUME 7.9 fl (7.5-11.1); NEUTROPHILS 37.9 % (42.8-82.8); PLATELET COUNT 285 K/MM3 (134-434); RDW 14.6 % (11.6-15.6); WHITE BLOOD COUNT 3.8 K/mm3 (4.0-10.0)
[2017-03-25 07:39] LABS: ALBUMIN 2.9 g/dl (3.4-5.0); ANION GAP 2 (8-16); CALCIUM 8.8 mg/dL (8.5-10.1); CO2 36 mmol/L (21-32); GLUCOSE,RANDOM 100 mg/dL (74-106); SGOT/AST 25 U/L (15-37); SGPT/ALT 21 U/L (12-78)
[2017-03-25 07:42] LABS: ALK PHOS 62 U/L (45-117); BILIRUBIN,TOTAL 0.2 mg/dL (0.2-1.0); CREATININE 0.5 mg/dL (0.55-1.02); TOT PROT 6.1 g/dl (6.4-8.2)
--- NOTE | 2017-03-25 08:13 | PN ---
Progress Note, Physician - Current Medication List Current Medications: Active Medications Albuterol/Ipratropium (Duoneb -) 1 amp NEB QIDR [facility] Last Admin: 03/25/17 06:52 Dose: 1 amp Clonazepam (Klonopin -) 1 mg PO BID [facility] Last Admin: 03/24/17 22:07 Dose: 1 mg Desipramine HCl (Norpramin -) 25 mg PO HS [facility] Last Admin: 03/24/17 22:09 Dose: 25 mg Fentanyl (Duragesic 50mcg Patch -) 1 patch TD Q2D [facility] Gabapentin (Neurontin -) 600 mg PO TID [facility] Last Admin: 03/25/17 06:00 Dose: 600 mg Heparin Sodium (Porcine) (Heparin -) 5,000 unit SQ BID [facility] Last Admin: 03/24/17 22:07 Dose: 5,000 unit Ceftriaxone Sodium (Rocephin 1gm Ivpb (Pre-Docked)) 50 mls @ 100 mls/hr IVPB DAILY [facility] Last Admin: 03/24/17 10:12 Dose: 100 mls/hr Pantoprazole Sodium (Protonix 40mg Ivpb (Pre-Docked)) 100 mls @ 200 mls/hr IVPB DAILY [facility] Last Admin: 03/24/17 10:11 Dose: 200 mls/hr Potassium Chloride/Dextrose/Sod Cl (D5-1/2ns+20 Meq Kcl -) 1,000 mls @ 83 mls/ hr IV ASDIR [facility] Last Admin: 03/24/17 10:08 Dose: 83 mls/hr Methylnaltrexone [place] (Relistor -) 12 mg SQ DAILY [facility] Last Admin: 03/24/17 10:40 Dose: 12 mg Miscellaneous (Duragesic Patch Waste) 1 each TD PRN PRN Trazodone HCl (Desyrel -) 200 mg PO [facility] Last Admin: 03/24/17 22:06 Dose: 200 mg - Objective Vital Signs: Vital Signs Temperature 98.2 F 03/25/17 06:00 Pulse Rate 73 03/25/17 06:00 Respiratory Rate 20 03/25/17 06:00 Blood Pressure 99/45 03/25/17 06:00 O2 Sat by Pulse Oximetry (%) 95 03/24/17 21:00 Cardiovascular: Yes: Regular Rate and Rhythm Respiratory: Yes: Regular, CTA Bilaterally Gastrointestinal: Yes: Normal Bowel Sounds, Soft. No: Tenderness Labs: CBC, BMP 03/25/17 06:00 INR, PTT INR 1.09 (0.82-1.09) 03/24/17 04:52 Problem List - Problems (1) Constipated Assessment/Plan: ENEMA RELISTOR GI CONSULT NPO' IVF Code(s): K59.00 - CONSTIPATION, UNSPECIFIED Qualifiers: Constipation type: unspecified constipation type Qualified Code(s): K59.00 - Constipation, unspecified (2) Pneumonia Assessment/Plan: NO SYMPTOMS PULM CONSULT NEBS INCENTIVE SPIROMETRY Code(s): J18.9 - PNEUMONIA, UNSPECIFIED ORGANISM Qualifiers: Pneumonia type: due to unspecified organism Laterality: bilateral Lung location: lower lobe of lung Qualified Code(s): J18.9 - Pneumonia, unspecified organism (3) Fibromyalgia Assessment/Plan: PAIN MEDS DISCUSSED Code(s): M79.7 - FIBROMYALGIA (4) Hypothyroid Assessment/Plan: check tft endo Code(s): E03.9 - HYPOTHYROIDISM, UNSPECIFIED
[2017-03-25] MEDS ORDERED: LACTULOSE 20 GM/30 ML UDC (FOR ORAL USE ONLY) PO ONE (09:30)
[2017-03-25] MEDS ORDERED: PT OWN MED DRAWER 7, Y5N ONE ×2 (10:57→20:35)
[2017-03-25] MEDS: CEFTRIAXONE 50 ML IVPB SCH (11:08)
[2017-03-25] MEDS: PANTOPRAZOLE SODIUM 100 ML IVPB SCH (11:08)
[2017-03-25] MEDS: clonazePAM 0.5 MG TABLET PO SCH ×2 (11:09→21:16)
[2017-03-25] MEDS: fentaNYL 50mcg/hr PATCH.TD72 TD SCH (11:10)
[2017-03-25] MEDS: HEPARIN NA (PORCINE) 5,000 UNITS/ML 1ML VIAL SQ SCH ×2 (11:11→21:15)
[2017-03-25] MEDS: POLYETHYLENE GLYCOL 3350 119 GM BTL PO SCH ×2 (11:12→21:17)
[2017-03-25] MEDS: D5-1/2NS+20 MEQ KCL - 1,000 ML IV SCH ×2 (11:17→16:59)
[2017-03-25] MEDS: Methylnaltrexone Bromide 12 MG/0.6 ML KIT SQ SCH (11:17)
--- NOTE | 2017-03-25 11:55 | PN ---
Progress Note (short form) - Note Progress Note: PULMONARY Denies shortness of breath, cough or fevers. Last Vital Signs Temp Pulse Resp BP Pulse Ox 98.2 F 76 20 99/45 97 03/25/17 06:00 03/25/17 11:44 03/25/17 06:00 03/25/17 06:00 03/25/17 11:44 Gen: NAD at rest Heart: RRR Lung: bibasilar rales Abd: soft, nontender Ext: no edema CBC, BMP 03/25/17 06:00 03/25/17 06:00 Active Medications Albuterol/Ipratropium (Duoneb -) 1 amp NEB QIDR [facility] Last Admin: 03/25/17 11:44 Dose: 1 amp Clonazepam (Klonopin -) 1 mg PO BID [facility] Last Admin: 03/25/17 11:09 Dose: 1 mg Desipramine HCl (Norpramin -) 25 mg PO HS [facility] Last Admin: 03/24/17 22:09 Dose: 25 mg Fentanyl (Duragesic 50mcg Patch -) 1 patch TD Q2D [facility] Last Admin: 03/25/17 11:10 Dose: 1 patch Gabapentin (Neurontin -) 600 mg PO TID [facility] Last Admin: 03/25/17 06:00 Dose: 600 mg Heparin Sodium (Porcine) (Heparin -) 5,000 unit SQ BID [facility] Last Admin: 03/25/17 11:11 Dose: 5,000 unit Ceftriaxone Sodium (Rocephin 1gm Ivpb (Pre-Docked)) 50 mls @ 100 mls/hr IVPB DAILY [facility] Last Admin: 03/25/17 11:08 Dose: 100 mls/hr Pantoprazole Sodium (Protonix 40mg Ivpb (Pre-Docked)) 100 mls @ 200 mls/hr IVPB DAILY [facility] Last Admin: 03/25/17 11:08 Dose: 200 mls/hr Potassium Chloride/Dextrose/Sod Cl (D5-1/2ns+20 Meq Kcl -) 1,000 mls @ 83 mls/ hr IV ASDIR [facility] Last Admin: 03/25/17 11:17 Dose: Not Given Methylnaltrexone [place] (Relistor -) 12 mg SQ DAILY [facility] Last Admin: 03/25/17 11:17 Dose: 12 mg Miscellaneous (Duragesic Patch Waste) 1 each TD PRN PRN Polyethylene Glycol (Miralax (For Daily Use) -) 17 gm PO BID [facility] Last Admin: 03/25/17 11:12 Dose: 17 gm Trazodone HCl (Desyrel -) 200 mg PO HS [facility] Last Admin: 03/24/17 22:06 Dose: 200 mg A/P Opiate Induced Constipation Less Likely Pneumonia Hypothyroidism Depression/Anxiety - CT findings more likely related to atelectasis - can d/c antibiotics - continue relistor - DVT prophylaxis
--- NOTE | 2017-03-25 14:48 | CON.CARD ---
Consult Consult Specialty:: Cardiology Referred by:: Lauren Reason for Consultation:: abnormal ekg - History of Present Illness Chief Complaint: abdominal pain History of Present Illness: 61 year old female presenting with her , with a significant past medical history of hypothyroidism, anxiety, depression, fibromyalgia (on fentanyl patch and PO oxycodone), who presents to the emergency department with abdominal pain or eight hours along with constipation for four days. Pain is resolved. Patient has had BM. Denies any cardiac history. No chest pain, sob, or palpitations. No pnd, orthopnea, or edema. ET limited due to fibromyalgia and general fatigue. 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 No: Cancer Renal/: No: Renal Inusuff Musculoskeletal: Yes: Chronic low back pain, Other (PMR) Rheumatology: Yes: Fibromyalgia Endocrine: Yes: Hypothyroidism - Past Surgical History Past Surgical History: Yes: Bariatric Surgery - Alcohol/Substance Use Hx Alcohol Use: No - Smoking History Smoking history: Never smoked Have you smoked in the past 12 months: No Aproximately how many cigarettes per day: 0 Home Medications - Allergies Allergies/Adverse Reactions: Allergies Allergy/AdvReac Type Severity Reaction Status Date / Time No Known Drug Allergies Allergy Verified 03/24/17 05:13 - Home Medications Home Medications: Ambulatory Orders Clonazepam [KlonoPIN] 1 mg PO BID 07/13/13 Trazodone HCl [Desyrel -] 200 mg PO HS 07/13/13 FENTANYL 50mcg PATCH [DURAGESIC 50mcg PATCH -] 50 mcg TD Q2D 09/20/14 Gabapentin 600 mg PO TID 11/02/16 Desipramine HCl [Norpramin -] 25 mg PO DAILY 03/24/17 Oxycodone HCl [Oxycodone HCl ER] 15 mg PO DAILY 03/24/17 Vital Signs: Vital Signs Temperature 98.1 F 03/25/17 14:31 Pulse Rate 88 03/25/17 14:31 Respiratory Rate 20 03/25/17 14:31 Blood Pressure 100/56 03/25/17 14:31 O2 Sat by Pulse Oximetry (%) 97 03/25/17 11:44 Constitutional: Yes: No Distress Neck: Yes: Supple Respiratory: Yes: CTA Bilaterally Gastrointestinal: Yes: Normal Bowel Sounds, Soft Cardiovascular: Yes: Regular Rate and Rhythm JVD: No Carotid Bruit: No Heart Sounds: Yes: S1, S2 Murmur: No: Systolic Murmur Edema: No - Other Data Labs, Other Data: CBC, BMP 03/25/17 06:00 03/25/17 06:00 INR, PTT INR 1.09 (0.82-1.09) 03/24/17 04:52 Imaging - Results Chest X-ray: Report Reviewed EKG: Image Reviewed Problem List - Problems (1) Abdominal pain Code(s): R10.9 - UNSPECIFIED ABDOMINAL PAIN Assessment/Plan 61 year old female presenting with her , with a significant past medical history of hypothyroidism, anxiety, depression, fibromyalgia (on fentanyl patch and PO oxycodone), who presents to the emergency department with abdominal pain or eight hours along with constipation for four days. Pain is resolved. Patient has had BM. Denies any cardiac history. No chest pain, sob, or palpitations. No pnd, orthopnea, or edema. ET limited due to fibromyalgia and general fatigue. 1) Abdominal Pain -appears to be related to GI issues and possible constipation on multiple pain meds. F/u GI recommendations. 2) Pulm as per pulm no signs of PNA 3) CV -Patient denies any cardiac complaints of chest pain or sob or palpitations to me. Holter was placed due to c/o general fatigue which likely related to her fibromyalgia but would f/u results -EKG sinus rhythm with no acute ischemic changes. Read as possible septal infarct pattern but this is likely just poor R wave progression due to lead placement. Would get echocardiogram to ensure no LV wall motion abnormalities but no signs of CHF. If needed, this can be done as an outpatient.
[2017-03-25] MEDS: FENTANYL PATCH WASTE TD PRN (17:03)
[2017-03-25] MEDS ORDERED: traZODone HCL 50 MG TABLET (FP) ONE (20:34)
[2017-03-25] MEDS: traZODone HCL 100 MG TABLET (FP) PO SCH (21:15)
[2017-03-25] MEDS: DESIPRAMINE HCL 25 MG TABLET PO SCH (21:18)
--- NOTE | 2017-03-25 23:53 | CONSULT ---
Consult Consult Specialty:: endocrine Referred by:: dr.[email or web address] rivera Reason for Consultation:: hypothyroidism - History of Present Illness Chief Complaint: abdominal pain nausea History of Present Illness: 61 year old female presenting with her , with a significant past medical history of hypothyroidism, anxiety, depression, fibromyalgia (on fentanyl patch and PO oxycodone), who presents to the emergency department with abdominal pain that began yesterday at 7PM. Pts last meal was at 6PM and she states that she was not able to tolerate any po. 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 No: Cancer Renal/: No: Renal Inusuff Musculoskeletal: Yes: Chronic low back pain, Other (PMR) Rheumatology: Yes: Fibromyalgia Endocrine: Yes: Hypothyroidism - Past Surgical History Past Surgical History: Yes: Bariatric Surgery - Alcohol/Substance Use Hx Alcohol Use: No - Smoking History Smoking history: Never smoked Have you smoked in the past 12 months: No Aproximately how many cigarettes per day: 0 Home Medications - Allergies Allergies/Adverse Reactions: Allergies Allergy/AdvReac Type Severity Reaction Status Date / Time No Known Drug Allergies Allergy Verified 03/24/17 05:13 - Home Medications Home Medications: Ambulatory Orders Clonazepam [KlonoPIN] 1 mg PO BID 07/13/13 Trazodone HCl [Desyrel -] 200 mg PO HS 07/13/13 FENTANYL 50mcg PATCH [DURAGESIC 50mcg PATCH -] 50 mcg TD Q2D 09/20/14 Gabapentin 600 mg PO TID 11/02/16 Desipramine HCl [Norpramin -] 25 mg PO DAILY 03/24/17 Oxycodone HCl [Oxycodone HCl ER] 15 mg PO DAILY 03/24/17 Review of Systems - Review of Systems Constitutional: reports: Lethargy, Loss of Appetite, Unintentional Wgt. Loss, Weakness Eyes: reports: Blurred Vision HENT: reports: Difficult Swallowing Neck: reports: Decreased ROM Cardiovascular: reports: Shortness of Breath Respiratory: reports: Exercise Intolerance, SOB on Exertion Gastrointestinal: reports: Abdominal Pain, Bloating, Constipation, Indigestion, Nausea Genitourinary: reports: No Symptoms Breasts: reports: No Symptoms Reported Musculoskeletal: reports: Decreased ROM, Extremity Pain, Muscle Pain, Muscle Cramps, Muscle Weakness Integumentary: reports: No Symptoms Neurological: reports: Dizziness, Unsteady Gait, Weakness Endocrine: reports: Intolerance to Cold, Unexplained Weight Loss Psychiatric: reports: Depression Physical Exam Vital Signs: Vital Signs Temperature 98.1 F 03/25/17 22:00 Pulse Rate 93 H 03/25/17 22:00 Respiratory Rate 18 03/25/17 22:00 Blood Pressure 106/55 03/25/17 22:00 O2 Sat by Pulse Oximetry (%) 95 03/25/17 21:00 Constitutional: Yes: Anxious Eyes: Yes: EOM Intact HENT: Yes: Normocephalic Neck: Yes: Trachea Midline Cardiovascular: Yes: Tachycardia Respiratory: Yes: CTA Bilaterally Gastrointestinal: Yes: Normal Bowel Sounds, Tenderness, Epigastrium ...Rectal Exam: Yes: Deferred Renal/: Yes: WNL Breast(s): Yes: WNL Musculoskeletal: Yes: WNL Extremities: Yes: WNL Neurological: Yes: Alert, Oriented Labs: CBC, BMP 03/25/17 06:00 03/25/17 06:00 Problem List - Problems (1) Abdominal pain Code(s): R10.9 - UNSPECIFIED ABDOMINAL PAIN (2) Fibromyalgia Code(s): M79.7 - FIBROMYALGIA (3) Hypothyroid Code(s): E03.9 - HYPOTHYROIDISM, UNSPECIFIED (4) Weight loss Code(s): R63.4 - ABNORMAL WEIGHT LOSS (5) Community acquired pneumonia Code(s): J18.9 - PNEUMONIA, UNSPECIFIED ORGANISM Assessment/Plan Current Active Problems Abdominal pain (Acute) Constipated (Acute) Fibromyalgia (Acute) Hypothyroid (Acute) Pneumonia (Acute) Weight loss (Acute) Abnormal Lab Results 03/25/17 03/25/17 06:00 06:00 WBC 3.8 L D RBC 3.59 L Neutrophils % 37.9 L D Lymphocytes % 48.6 H D Carbon Dioxide 36 H Anion Gap 2 L Creatinine 0.5 L Total Protein 6.1 L Albumin 2.9 L Laboratory Results - last 24 hr 03/24/17 03/25/17 03/25/17 09:32 06:00 06:00 WBC 3.8 L D RBC 3.59 L Hgb 10.7 D Hct 32.5 MCV 90.5 MCH 29.8 MCHC 32.9 RDW 14.6 Plt Count 285 MPV 7.9 Neutrophils % 37.9 L D Lymphocytes % 48.6 H D Monocytes % 9.3 D Eosinophils % 3.4 D Basophils % 0.8 Sodium 142 Potassium 4.5 Chloride 104 Carbon Dioxide 36 H Anion Gap 2 L BUN 9 D Creatinine 0.5 L Creat Clearance w eGFR > 60 Random Glucose 100 Calcium 8.8 Magnesium 2.0 Total Bilirubin 0.2 D AST 25 ALT 21 Alkaline Phosphatase 62 D Total Protein 6.1 L Albumin 2.9 L Free T3 2.1 Laboratory Tests 03/24/17 03/24/17 09:32 09:32 TSH 2.56 Free T4 0.89 Free T3 2.1 plan: euthyroidism clinically restart synthroid 25mcg daily
[2017-03-26] MEDS: ALBUTEROL SO4 2.5/IPRATROPIUM 0.5 INH SOL 3 ML VIAL.NEB. NEB SCH ×4 (06:35→23:36)
[2017-03-26] MEDS: LEVOTHYROXINE NA 25 MCG TABLET (FP) PO SCH ×2 (06:54→06:57)
[2017-03-26] MEDS: GABAPENTIN 300 MG CAPSULE (FP) PO SCH ×3 (06:54→22:23)
[2017-03-26 09:04] LABS: BASOPHIL 1.1 % (0-2.0); MCH 29.7 pg (25.7-33.7); MCHC 33.2 g/dl (32.0-36.0); MEAN CELL VOLUME 89.4 fl (80-96); MEAN PLT VOLUME 7.5 fl (7.5-11.1); NEUTROPHILS 39.3 % (42.8-82.8); PLATELET COUNT 294 K/MM3 (134-434); WHITE BLOOD COUNT 3.2 K/mm3 (4.0-10.0)
--- NOTE | 2017-03-26 09:32 | DS ---
Physical Examination Vital Signs: Vital Signs Temperature 98.4 F 03/26/17 09:00 Pulse Rate 86 03/26/17 09:00 Respiratory Rate 18 03/26/17 09:00 Blood Pressure 98/57 03/26/17 09:00 O2 Sat by Pulse Oximetry (%) 95 03/25/17 21:00 Labs: CBC, BMP 03/26/17 08:45 03/25/17 06:00 Discharge Summary Reason For Visit: PNEUMONIA,CONSTIPATED Current Active Problems Abdominal pain (Acute) Constipated (Acute) Fibromyalgia (Acute) Hypothyroid (Acute) Pneumonia (Acute) Weight loss (Acute) Hospital Course: 61 year old female presenting with her , with a significant past medical history of hypothyroidism, anxiety, depression, fibromyalgia (on fentanyl patch and PO oxycodone), who presents to the emergency department with abdominal pain that began yesterday at 7PM. Pts last meal was at 6PM and she states that she was not able to eat much. 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 No: Cancer Renal/: No: Renal Inusuff Musculoskeletal: Yes: Chronic low back pain, Other (PMR) Rheumatology: Yes: Fibromyalgia Endocrine: Yes: Hypothyroidism - Past Surgical History Past Surgical History: Yes: Bariatric Surgery Additional Past Surgical History: PARTIAL THYROIDECTOMY - Problems (1) Constipated Assessment/Plan: HAD BM RELISTOR GI CONSULT NOTED ON REGULAR DIET DC IVF Code(s): K59.00 - CONSTIPATION, UNSPECIFIED Qualifiers: Constipation type: unspecified constipation type Qualified Code(s): K59.00 - Constipation, unspecified (2) Pneumonia Assessment/Plan: NO SYMPTOMS PULM CONSULT NOTED NEBS PO ABX INCENTIVE SPIROMETRY Code(s): J18.9 - PNEUMONIA, UNSPECIFIED ORGANISM Qualifiers: Pneumonia type: due to unspecified organism Laterality: bilateral Lung location: lower lobe of lung Qualified Code(s): J18.9 - Pneumonia, unspecified organism (3) Fibromyalgia Assessment/Plan: PAIN MEDS DISCUSSED Code(s): M79.7 - FIBROMYALGIA (4) Hypothyroid Assessment/Plan: check tft endo--SYNTHROID 25 Code(s): E03.9 - HYPOTHYROIDISM, UNSPECIFIED (5) Leukopenia Assessment/Plan: checK REPEAT---HEM CONSULT Condition: Improved - Instructions Referrals: Nathan Pagan MD [Primary Care Provider] - 1 Week Disposition: HOME - Home Medications Comprehensive Discharge Medication List: Ambulatory Orders Clonazepam [KlonoPIN] 1 mg PO BID 07/13/13 Trazodone HCl [Desyrel -] 200 mg PO HS 07/13/13 FENTANYL 50mcg PATCH [DURAGESIC 50mcg PATCH -] 50 mcg TD Q2D 09/20/14 Gabapentin 600 mg PO TID 11/02/16 Desipramine HCl [Norpramin -] 25 mg PO DAILY 03/24/17 Cefuroxime Axetil [Ceftin -] 250 mg PO BID #10 tablet 03/26/17 Ipratropium/Albuterol Sulfate [Combivent Respimat Inhal [place]] 4 gm IH QID #1 aer.w.adap 03/26/17 Levothyroxine [Synthroid -] 25 mcg PO DAILY@0700 #30 tablet 03/26/17 Methylnaltrexone [place] [Relistor -] 12 mg SQ DAILY #30 kit 03/26/17 Pantoprazole Sodium [Protonix -] 40 mg PO DAILY #30 tablet.ec 03/26/17 Polyethylene Glycol 3350 [Miralax 119 gm Btl -] 17 gm PO BID #1 bottle 03/26/17
[2017-03-26] MEDS ORDERED: PT OWN MED DRAWER 7, Y5N ONE (10:43)
[2017-03-26] MEDS: clonazePAM 0.5 MG TABLET PO SCH ×3 (10:47→22:23)
[2017-03-26] MEDS: HEPARIN NA (PORCINE) 5,000 UNITS/ML 1ML VIAL SQ SCH ×2 (10:48→22:23)
[2017-03-26] MEDS: PANTOPRAZOLE SODIUM 100 ML IVPB SCH (10:48)
[2017-03-26] MEDS: CEFTRIAXONE 50 ML IVPB SCH (10:48)
--- NOTE | 2017-03-26 10:48 | HOL ---
Hook-up date: 2017-03-25 10:36:00 Duration: 23:20:00 Test Indications: ABNORMAL EKG Medications: [id number] QRS complexes * Ventricular ectopics which represent % of total QRS comp. 12 Supraventricular ectopics which represent <1 % of total QRS comp. * Paced QRS complexs which represent % of total QRS comp. * % of Time Classified as Noise VENTRICULAR ECTOPY * Isolated * Bigeminal Cycles * Couplets * Runs * Beats in Runs * Beats LONGEST at * BPM at :: -- * Beats FASTEST at * BPM at :: -- SUPRAVENTRICULAR ECTOPY 12 Isolated 0 Couplets 0 Runs 0 Beats in Runs * Beats LONGEST at * BPM at :: -- * Beats FASTEST at * BPM at :: -- HEART RATES 57 MIN at 07:41:37 2017-03-26 86 AVG 123 MAX at 09:29:39 2017-03-26 LONGEST RR 1.216 secs at 07:32:03 2017-03-26 The underlying rhythm was normal sinus ranging from 57bpm to 123 bpm. The average rate was 86 bpm. Rare, single, atrial premature contractions. No venticular ectopy. No significant arrhyhmias. No pauses of clinical significance. No diary submitted. Confirmed by DOMINIC DEL RIO MD ([id number]) on 03/26/2017 10:47:12 AM Referred By: Overread By: DOMINIC DEL RIO MD
[2017-03-26] MEDS: Methylnaltrexone Bromide 12 MG/0.6 ML KIT SQ SCH (10:49)
[2017-03-26] MEDS: POLYETHYLENE GLYCOL 3350 119 GM BTL PO SCH ×2 (10:49→22:26)
[2017-03-26] MEDS: D5-1/2NS+20 MEQ KCL - 1,000 ML IV SCH (10:52)
[2017-03-26 12:08] LABS: URINE APPEARANCE CLEAR; URINE BILIRUBIN NEGATIVE (NEGATIVE); URINE BLOOD NEGATIVE (NEGATIVE); URINE COLOR YELLOW; URINE GLUCOSE (UA) NEGATIVE (NEGATIVE); URINE KETONE TRACE (NEGATIVE); URINE LEUK ESTERASE NEGATIVE (NEGATIVE); URINE NITRITE NEGATIVE (NEGATIVE); URINE PROTEIN NEGATIVE (NEGATIVE); URINE UROBILINOGEN NEGATIVE mg/dL (0.2-1.0)
--- NOTE | 2017-03-26 12:35 | CONSULT ---
Consult Consult Specialty:: Hematology/Oncology Referred by:: Reason for Consultation:: Leukopenia - History of Present Illness History of Present Illness: 61 year old female with a past medical history of hypothyroidism, anxiety, depression, fibromyalgia (on fentanyl patch and PO oxycodone), who was admitted with constipation , s/p relistor, also being treated for pneumonia. Hematology was consulted for low white count. Patient seen and examined. Patient feel s OK. She denies any fever, ulcers, blisters, frequent infections.She denies any nausea, vomiting or diarrhea. Otherwise ROS is negative. 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 No: Cancer Renal/: No: Renal Inusuff Musculoskeletal: Yes: Chronic low back pain, Other (PMR) Rheumatology: Yes: Fibromyalgia Endocrine: Yes: Hypothyroidism - Past Surgical History Past Surgical History: Yes: Bariatric Surgery - Alcohol/Substance Use Hx Alcohol Use: No - Smoking History Smoking history: Never smoked Have you smoked in the past 12 months: No Aproximately how many cigarettes per day: 0 Home Medications - Allergies Allergies/Adverse Reactions: Allergies Allergy/AdvReac Type Severity Reaction Status Date / Time No Known Drug Allergies Allergy Verified 03/24/17 05:13 - Home Medications Home Medications: Ambulatory Orders Clonazepam [KlonoPIN] 1 mg PO BID 07/13/13 Trazodone HCl [Desyrel -] 200 mg PO HS 07/13/13 FENTANYL 50mcg PATCH [DURAGESIC 50mcg PATCH -] 50 mcg TD Q2D 09/20/14 Gabapentin 600 mg PO TID 11/02/16 Desipramine HCl [Norpramin -] 25 mg PO DAILY 03/24/17 Cefuroxime Axetil [Ceftin -] 250 mg PO BID #10 tablet 03/26/17 Ipratropium/Albuterol Sulfate [Combivent Respimat Inhal [place]] 4 gm IH QID #1 aer.w.adap 03/26/17 Levothyroxine [Synthroid -] 25 mcg PO DAILY@0700 #30 tablet 03/26/17 Methylnaltrexone [place] [Relistor -] 12 mg SQ DAILY #30 kit 03/26/17 Pantoprazole Sodium [Protonix -] 40 mg PO DAILY #30 tablet.ec 03/26/17 Polyethylene Glycol 3350 [Miralax 119 gm Btl -] 17 gm PO BID #1 bottle 03/26/17 Review of Systems - Review of Systems Constitutional: reports: No Symptoms. denies: Chills, Diaphoresis, Fever, Lethargy, Loss of Appetite Eyes: denies: Blind Spots HENT: denies: Difficult Swallowing, Mouth Swelling, Throat Pain Neck: denies: Decreased ROM Cardiovascular: denies: Chest Pain, Palpitations, Shortness of Breath Respiratory: denies: Cough, Exercise Intolerance Gastrointestinal: denies: Abdominal Pain, Indigestion, Melena, Nausea, Rectal Bleeding Genitourinary: denies: Burning Integumentary: denies: Blister, Bruising, Lesions Psychiatric: denies: Anxiety Physical Exam Vital Signs: Vital Signs Temperature 98.4 F 03/26/17 09:00 Pulse Rate 86 03/26/17 09:00 Respiratory Rate 18 03/26/17 09:00 Blood Pressure 98/57 03/26/17 09:00 O2 Sat by Pulse Oximetry (%) 95 03/25/17 21:00 Constitutional: Yes: Anxious Eyes: Yes: Conjunctiva Clear HENT: Yes: Atraumatic, Normocephalic. No: Epistaxis Neck: Yes: Trachea Midline. No: Lymphadenopathy Cardiovascular: Yes: Regular Rate and Rhythm Respiratory: Yes: Regular, CTA Bilaterally. No: Accessory Muscle Use Gastrointestinal: Yes: Normal Bowel Sounds, Soft Extremities: Yes: WNL Edema: No Integumentary: No: Bruising, Erythema, Incision Neurological: Yes: Alert, Oriented Psychiatric: Yes: WNL, Alert, Oriented Labs: CBC, BMP 03/26/17 08:45 03/25/17 06:00 Problem List - Problems (1) Leukopenia Assessment/Plan: New onset mild neutropenia (ANC Of 1280) Peripheral smear unremarkable The prior counts were normal, occurred today. Most likely etiology is benign like drug induced than a primary marrow disorder ,new drugs included cephalosporins, PPI and also a stress response from marrow. Though Klonopin causes leukopenia/neutropenia , seems like patient is on it for a while. . repeat CBC in the am. Will continue to monitor. Code(s): D72.819 - DECREASED WHITE BLOOD CELL COUNT, UNSPECIFIED (2) Pneumonia Assessment/Plan: On ceftriaxone. Code(s): J18.9 - PNEUMONIA, UNSPECIFIED ORGANISM Qualifiers: Pneumonia type: due to unspecified organism Laterality: bilateral Lung location: lower lobe of lung Qualified Code(s): J18.9 - Pneumonia, unspecified organism (3) Fibromyalgia Code(s): M79.7 - FIBROMYALGIA (4) Hypothyroid Code(s): E03.9 - HYPOTHYROIDISM, UNSPECIFIED (5) Constipated Assessment/Plan: s/p methylnaltrexone Code(s): K59.00 - CONSTIPATION, UNSPECIFIED Qualifiers: Constipation type: unspecified constipation type Qualified Code(s): K59.00 - Constipation, unspecified
--- NOTE | 2017-03-26 13:54 | PN ---
Progress Note, Physician Chief Complaint: some abdominal discomfort and N/V No chest pain or dyspnea or palpitations History of Present Illness: 61 year old female presenting with her , with a significant past medical history of hypothyroidism, anxiety, depression, fibromyalgia (on fentanyl patch and PO oxycodone), who presents to the emergency department with abdominal pain or eight hours along with constipation for four days. Pain is resolved. Patient has had BM. Denies any cardiac history. No chest pain, sob, or palpitations. No pnd, orthopnea, or edema. ET limited due to fibromyalgia and general fatigue. - Current Medication List Current Medications: Active Medications Albuterol/Ipratropium (Duoneb -) 1 amp NEB QIDR [facility] Last Admin: 03/26/17 11:45 Dose: Not Given Clonazepam (Klonopin -) 1 mg PO BID [facility] Last Admin: 03/26/17 10:47 Dose: 1 mg Desipramine HCl (Norpramin -) 25 mg PO HS [facility] Last Admin: 03/25/17 21:18 Dose: 25 mg Fentanyl (Duragesic 50mcg Patch -) 1 patch TD Q2D [facility] Last Admin: 03/25/17 11:10 Dose: 1 patch Gabapentin (Neurontin -) 600 mg PO TID [facility] Last Admin: 03/26/17 06:54 Dose: 600 mg Heparin Sodium (Porcine) (Heparin -) 5,000 unit SQ BID [facility] Last Admin: 03/26/17 10:48 Dose: Not Given Ceftriaxone Sodium (Rocephin 1gm Ivpb (Pre-Docked)) 50 mls @ 100 mls/hr IVPB DAILY [facility] Last Admin: 03/26/17 10:48 Dose: 100 mls/hr Pantoprazole Sodium (Protonix 40mg Ivpb (Pre-Docked)) 100 mls @ 200 mls/hr IVPB DAILY [facility] Last Admin: 03/26/17 10:48 Dose: 200 mls/hr Potassium Chloride/Dextrose/Sod Cl (D5-1/2ns+20 Meq Kcl -) 1,000 mls @ 83 mls/ hr IV ASDIR [facility] Last Admin: 03/26/17 10:52 Dose: 83 mls/hr Levothyroxine Sodium (Synthroid -) 25 mcg PO DAILY@0700 [facility] Last Admin: 03/26/17 06:57 Dose: Not Given Methylnaltrexone [place] (Relistor -) 12 mg SQ DAILY [facility] Last Admin: 03/26/17 10:49 Dose: 12 mg Miscellaneous (Duragesic Patch Waste) 1 each TD PRN PRN Last Admin: 03/25/17 17:03 Dose: 1 each Polyethylene Glycol (Miralax (For Daily Use) -) 17 gm PO BID [facility] Last Admin: 03/26/17 10:49 Dose: 17 gm Trazodone HCl (Desyrel -) 200 mg PO HS [facility] Last Admin: 03/25/17 21:15 Dose: 200 mg - Objective Vital Signs: Vital Signs Temperature 98.4 F 03/26/17 09:00 Pulse Rate 86 03/26/17 09:00 Respiratory Rate 18 03/26/17 09:00 Blood Pressure 98/57 03/26/17 09:00 O2 Sat by Pulse Oximetry (%) 96 03/26/17 09:00 Constitutional: Yes: No Distress Neck: Yes: Supple Cardiovascular: Yes: Regular Rate and Rhythm, S1, S2. No: JVD, Gallop, Murmur Respiratory: Yes: CTA Bilaterally Gastrointestinal: Yes: Normal Bowel Sounds, Soft Edema: No Labs: CBC, BMP 03/26/17 08:45 03/25/17 06:00 INR, PTT INR 1.09 (0.82-1.09) 03/24/17 04:52 - ....Imaging EKG: Image Reviewed Problem List - Problems (1) Abdominal pain Code(s): R10.9 - UNSPECIFIED ABDOMINAL PAIN Assessment/Plan 61 year old female presenting with her , with a significant past medical history of hypothyroidism, anxiety, depression, fibromyalgia (on fentanyl patch and PO oxycodone), who presents to the emergency department with abdominal pain or eight hours along with constipation for four days. Pain is resolved. Patient has had BM. Denies any cardiac history. No chest pain, sob, or palpitations. No pnd, orthopnea, or edema. ET limited due to fibromyalgia and general fatigue. 1) Abdominal Pain -appears to be related to GI issues and possible constipation on multiple pain meds. F/u GI recommendations. 2) Pulm as per pulm no signs of PNA 3) CV -Patient denies any cardiac complaints of chest pain or sob or palpitations to me. Holter was placed due to c/o general fatigue which likely related to her fibromyalgia but would f/u results -EKG sinus rhythm with no acute ischemic changes. Read as possible septal infarct pattern but this is likely just poor R wave progression due to lead placement. Echocardiogram is unremarkable. No further cardiac work up at this time. Please call back if needed
[2017-03-26] MEDS ORDERED: ONDANSETRON 4 MG/2 ML VIAL IVPB PRN (13:58)
[2017-03-26] MEDS ORDERED: traZODone HCL 50 MG TABLET (FP) ONE (21:43)
[2017-03-26] MEDS: DESIPRAMINE HCL 25 MG TABLET PO SCH (22:25)
[2017-03-26] MEDS: ACETAMINOPHEN 325 MG TABLET (FP) PO PRN (22:33)
[2017-03-27] MEDS: traZODone HCL 100 MG TABLET (FP) PO SCH (00:15)
[2017-03-27] MEDS: D5-1/2NS+20 MEQ KCL - 1,000 ML IV SCH (02:12)
[2017-03-27] MEDS: LEVOTHYROXINE NA 25 MCG TABLET (FP) PO SCH (06:00)
[2017-03-27] MEDS: GABAPENTIN 300 MG CAPSULE (FP) PO SCH ×2 (06:00→15:13)
[2017-03-27] MEDS: ALBUTEROL SO4 2.5/IPRATROPIUM 0.5 INH SOL 3 ML VIAL.NEB. NEB SCH ×4 (06:54→18:26)
[2017-03-27 08:29] LABS: BASOPHIL 1.3 % (0-2.0); EOSINOPHIL 4.2 % (0-4.5); MCH 29.2 pg (25.7-33.7); MCHC 32.5 g/dl (32.0-36.0); MEAN CELL VOLUME 89.7 fl (80-96); MEAN PLT VOLUME 7.8 fl (7.5-11.1); PLATELET COUNT 287 K/MM3 (134-434); RDW 14.8 % (11.6-15.6); WHITE BLOOD COUNT 3.3 K/mm3 (4.0-10.0)
--- NOTE | 2017-03-27 08:56 | PN ---
Progress Note, Physician - Current Medication List Current Medications: Active Medications Acetaminophen (Tylenol -) 650 mg PO Q8H PRN PRN Reason: PAIN Last Admin: 03/26/17 22:33 Dose: 650 mg Albuterol/Ipratropium (Duoneb -) 1 amp NEB QIDR [facility] Last Admin: 03/27/17 06:56 Dose: Not Given Cefuroxime Axetil (Ceftin -) 250 mg PO BID [facility] Clonazepam (Klonopin -) 1 mg PO BID [facility] Last Admin: 03/26/17 22:23 Dose: Not Given Desipramine HCl (Norpramin -) 25 mg PO HS [facility] Last Admin: 03/26/17 22:25 Dose: 25 mg Fentanyl (Duragesic 50mcg Patch -) 1 patch TD Q2D [facility] Last Admin: 03/25/17 11:10 Dose: 1 patch Gabapentin (Neurontin -) 600 mg PO TID [facility] Last Admin: 03/27/17 06:00 Dose: 600 mg Heparin Sodium (Porcine) (Heparin -) 5,000 unit SQ BID [facility] Last Admin: 03/26/17 22:23 Dose: Not Given Levothyroxine Sodium (Synthroid -) 25 mcg PO DAILY@0700 [facility] Last Admin: 03/27/17 06:00 Dose: 25 mcg Methylnaltrexone [place] (Relistor -) 12 mg SQ DAILY [facility] Last Admin: 03/26/17 10:49 Dose: 12 mg Miscellaneous (Duragesic Patch Waste) 1 each TD PRN PRN Last Admin: 03/25/17 17:03 Dose: 1 each Ondansetron HCl (Zofran Injection) 4 mg IVPB Q8H PRN PRN Reason: NAUSEA AND/OR VOMITING Pantoprazole Sodium (Protonix -) 40 mg PO DAILY [facility] Polyethylene Glycol (Miralax (For Daily Use) -) 17 gm PO BID [facility] Last Admin: 03/26/17 22:26 Dose: 17 gm Trazodone HCl (Desyrel -) 200 mg PO HS [facility] Last Admin: 03/27/17 00:15 Dose: 200 mg - Objective Vital Signs: Vital Signs Temperature 97.4 F L 03/27/17 06:00 Pulse Rate 76 03/27/17 06:00 Respiratory Rate 18 03/27/17 06:00 Blood Pressure 98/65 03/27/17 06:00 O2 Sat by Pulse Oximetry (%) 96 03/26/17 21:00 Labs: CBC, BMP 03/27/17 06:55 03/25/17 06:00 INR, PTT INR 1.09 (0.82-1.09) 03/24/17 04:52 Problem List - Problems (1) Constipated Code(s): K59.00 - CONSTIPATION, UNSPECIFIED Qualifiers: Constipation type: unspecified constipation type Qualified Code(s): K59.00 - Constipation, unspecified (2) Pneumonia Code(s): J18.9 - PNEUMONIA, UNSPECIFIED ORGANISM Qualifiers: Pneumonia type: due to unspecified organism Laterality: bilateral Lung location: lower lobe of lung Qualified Code(s): J18.9 - Pneumonia, unspecified organism (3) Fibromyalgia Code(s): M79.7 - FIBROMYALGIA (4) Hypothyroid Code(s): E03.9 - HYPOTHYROIDISM, UNSPECIFIED
[2017-03-27] MEDS ORDERED: PT OWN MED DRAWER 7, Y5N ONE (09:30)
[2017-03-27] MEDS: fentaNYL 50mcg/hr PATCH.TD72 TD SCH (09:34)
[2017-03-27] MEDS: HEPARIN NA (PORCINE) 5,000 UNITS/ML 1ML VIAL SQ SCH (09:35)
[2017-03-27] MEDS: clonazePAM 0.5 MG TABLET PO SCH (09:35)
[2017-03-27] MEDS: POLYETHYLENE GLYCOL 3350 119 GM BTL PO SCH (09:36)
[2017-03-27] MEDS: Methylnaltrexone Bromide 12 MG/0.6 ML KIT SQ SCH (09:37)
[2017-03-27] MEDS: ACETAMINOPHEN 325 MG TABLET (FP) PO PRN (09:42)
[2017-03-27] MEDS: FENTANYL PATCH WASTE TD PRN (09:45)
[2017-03-27] MEDS ORDERED: CEFUROXIME AXETIL 500 MG TABLET PO SCH (10:00)
[2017-03-27] MEDS ORDERED: PANTOPRAZOLE 40 MG TABLET (FP) PO SCH (10:00)
--- NOTE | 2017-03-27 10:38 | DS ---
Physical Examination Vital Signs: Vital Signs Temperature 97.4 F L 03/27/17 06:00 Pulse Rate 76 03/27/17 06:00 Respiratory Rate 18 03/27/17 06:00 Blood Pressure 98/65 03/27/17 06:00 O2 Sat by Pulse Oximetry (%) 96 03/26/17 21:00 Findings/Remarks: BETTER THIS AM Cardiovascular: Yes: Regular Rate and Rhythm Respiratory: Yes: Regular, CTA Bilaterally Gastrointestinal: Yes: Normal Bowel Sounds, Soft. No: Tenderness Labs: CBC, BMP 03/27/17 06:55 03/25/17 06:00 Discharge Summary Reason For Visit: PNEUMONIA,CONSTIPATED Current Active Problems Abdominal pain (Acute) Constipated (Acute) Fibromyalgia (Acute) Hypothyroid (Acute) Leukopenia (Acute) Pneumonia (Acute) Weight loss (Acute) Hospital Course: 61 year old female presenting with her , with a significant past medical history of hypothyroidism, anxiety, depression, fibromyalgia (on fentanyl patch and PO oxycodone), who presents to the emergency department with abdominal pain that began yesterday at 7PM. Pts last meal was at 6PM and she states that she was not able to eat much. 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 No: Cancer Renal/: No: Renal Inusuff Musculoskeletal: Yes: Chronic low back pain, Other (PMR) Rheumatology: Yes: Fibromyalgia Endocrine: Yes: Hypothyroidism - Past Surgical History Past Surgical History: Yes: Bariatric Surgery Additional Past Surgical History: PARTIAL THYROIDECTOMY - Problems (1) Constipated Assessment/Plan: HAD BM RELISTOR GI CONSULT NOTED ON REGULAR DIET DC IVF Code(s): K59.00 - CONSTIPATION, UNSPECIFIED Qualifiers: Constipation type: unspecified constipation type Qualified Code(s): K59.00 - Constipation, unspecified (2) Pneumonia Assessment/Plan: NO SYMPTOMS PULM CONSULT NOTED NEBS PO ABX INCENTIVE SPIROMETRY Code(s): J18.9 - PNEUMONIA, UNSPECIFIED ORGANISM Qualifiers: Pneumonia type: due to unspecified organism Laterality: bilateral Lung location: lower lobe of lung Qualified Code(s): J18.9 - Pneumonia, unspecified organism (3) Fibromyalgia Assessment/Plan: PAIN MEDS DISCUSSED Code(s): M79.7 - FIBROMYALGIA (4) Hypothyroid Assessment/Plan: check tft endo--SYNTHROID 25 Code(s): E03.9 - HYPOTHYROIDISM, UNSPECIFIED (5) Leukopenia Assessment/Plan: HEM New onset mild neutropenia (ANC Of 1280) Peripheral smear unremarkable The prior counts were normal, occurred today. Most likely etiology is benign like drug induced than a primary marrow disorder ,new drugs included cephalosporins, PPI and also a stress response from marrow. Though Klonopin causes leukopenia/neutropenia , seems like patient is on it for a while. . repeat CBC in the am. Will continue to monitor. Code(s): D72.819 - DECREASED WHITE BLOOD CELL COUNT, UNSPECIFIED Condition: Improved - Instructions Referrals: Nathan Pagan MD [Primary Care Provider] - 1 Week Disposition: HOME - Home Medications Comprehensive Discharge Medication List: Ambulatory Orders Clonazepam [KlonoPIN] 1 mg PO BID 07/13/13 Trazodone HCl [Desyrel -] 200 mg PO HS 07/13/13 FENTANYL 50mcg PATCH [DURAGESIC 50mcg PATCH -] 50 mcg TD Q2D 09/20/14 Gabapentin 600 mg PO TID 11/02/16 Desipramine HCl [Norpramin -] 25 mg PO DAILY 03/24/17 Cefuroxime Axetil [Ceftin -] 250 mg PO BID #10 tablet 03/26/17 Ipratropium/Albuterol Sulfate [Combivent Respimat Inhal [place]] 4 gm IH QID #1 aer.w.adap 03/26/17 Levothyroxine [Synthroid -] 25 mcg PO DAILY@0700 #30 tablet 03/26/17 Methylnaltrexone [place] [Relistor -] 12 mg SQ DAILY #30 kit 03/26/17 Pantoprazole Sodium [Protonix -] 40 mg PO DAILY #30 tablet.ec 03/26/17 Polyethylene Glycol 3350 [Miralax 119 gm Btl -] 17 gm PO BID #1 bottle 03/26/17
--- NOTE | 2017-03-27 12:03 | PN ---
Progress Note (short form) - Note Progress Note: Denies shortness of breath, cough or fevers. Intake & Output 03/24/17 03/25/17 03/26/17 03/27/17 23:59 23:59 23:59 23:59 Intake Total 1207 3759 3216 1296 Balance 1207 3759 3216 1296 Weight 139 lb 137 lb 135 lb 7 oz 133 lb 14.4 oz Last Vital Signs Temp Pulse Resp BP Pulse Ox 97.3 F L 96 H 18 91/48 96 03/27/17 10:00 03/27/17 10:00 03/27/17 10:00 03/27/17 10:00 03/26/17 21:00 Active Medications Acetaminophen (Tylenol -) 650 mg PO Q8H PRN PRN Reason: PAIN Last Admin: 03/27/17 09:42 Dose: 650 mg Albuterol/Ipratropium (Duoneb -) 1 amp NEB QIDR [facility] Last Admin: 03/27/17 11:50 Dose: 1 amp Cefuroxime Axetil (Ceftin -) 250 mg PO BID [facility] Last Admin: 03/27/17 09:33 Dose: 250 mg Clonazepam (Klonopin -) 1 mg PO BID [facility] Last Admin: 03/27/17 09:35 Dose: 1 mg Desipramine HCl (Norpramin -) 25 mg PO HS [facility] Last Admin: 03/26/17 22:25 Dose: 25 mg Fentanyl (Duragesic 50mcg Patch -) 1 patch TD Q2D [facility] Last Admin: 03/27/17 09:34 Dose: 1 patch Gabapentin (Neurontin -) 600 mg PO TID [facility] Last Admin: 03/27/17 06:00 Dose: 600 mg Heparin Sodium (Porcine) (Heparin -) 5,000 unit SQ BID [facility] Last Admin: 03/27/17 09:35 Dose: Not Given Levothyroxine Sodium (Synthroid -) 25 mcg PO DAILY@0700 [facility] Last Admin: 03/27/17 06:00 Dose: 25 mcg Methylnaltrexone [place] (Relistor -) 12 mg SQ DAILY [facility] Last Admin: 03/27/17 09:37 Dose: 12 mg Miscellaneous (Duragesic Patch Waste) 1 each TD PRN PRN Last Admin: 03/27/17 09:45 Dose: 1 each Ondansetron HCl (Zofran Injection) 4 mg IVPB Q8H PRN PRN Reason: NAUSEA AND/OR VOMITING Pantoprazole Sodium (Protonix -) 40 mg PO DAILY [facility] Last Admin: 03/27/17 09:36 Dose: 40 mg Polyethylene Glycol (Miralax (For Daily Use) -) 17 gm PO BID [facility] Last Admin: 03/27/17 09:36 Dose: 17 gm Trazodone HCl (Desyrel -) 200 mg PO HS [facility] Last Admin: 03/27/17 00:15 Dose: 200 mg Gen: NAD at rest Heart: RRR Lung: Few basilar rhonchi Abd: soft, nontender Ext: no edema Laboratory Results - last 24 hr 03/26/17 03/27/17 03/27/17 11:05 06:55 06:55 WBC 3.3 L RBC 3.72 Hgb 10.9 Hct 33.4 MCV 89.7 MCH 29.2 MCHC 32.5 RDW 14.8 Plt Count 287 MPV 7.8 Neutrophils % 37.0 L Lymphocytes % 46.5 H Monocytes % 11.0 H Eosinophils % 4.2 Basophils % 1.3 Vitamin B12 1528 H Serum Folate 22 H Urine Color Yellow Urine Appearance Clear Urine pH 5.0 Ur Specific [place] >= 1.030 H Urine Protein Negative Urine Glucose (UA) Negative Urine Ketones Trace H Urine Blood Negative Urine Nitrite Negative Urine Bilirubin Negative Urine Urobilinogen Negative Ur Leukocyte Esterase Negative A/P Opiate Induced Constipation Less Likely Pneumonia -> Atelectasis Hypothyroidism Depression/Anxiety - CT findings more likely related to atelectasis but empiric short coverage with PO ABX not unreasonable - continue relistor - DVT prophylaxis - No Pulmonary contraindication for D/C planning Dr Healy
--- NOTE | 2017-03-27 12:09 | PN ---
Progress Note, Physician History of Present Illness: patient feels well. No complains. ROS is negative Likely to be discharged today - Current Medication List Current Medications: Active Medications Acetaminophen (Tylenol -) 650 mg PO Q8H PRN PRN Reason: PAIN Last Admin: 03/27/17 09:42 Dose: 650 mg Albuterol/Ipratropium (Duoneb -) 1 amp NEB QIDR [facility] Last Admin: 03/27/17 11:50 Dose: 1 amp Cefuroxime Axetil (Ceftin -) 250 mg PO BID [facility] Last Admin: 03/27/17 09:33 Dose: 250 mg Clonazepam (Klonopin -) 1 mg PO BID [facility] Last Admin: 03/27/17 09:35 Dose: 1 mg Desipramine HCl (Norpramin -) 25 mg PO HS [facility] Last Admin: 03/26/17 22:25 Dose: 25 mg Fentanyl (Duragesic 50mcg Patch -) 1 patch TD Q2D [facility] Last Admin: 03/27/17 09:34 Dose: 1 patch Gabapentin (Neurontin -) 600 mg PO TID [facility] Last Admin: 03/27/17 06:00 Dose: 600 mg Heparin Sodium (Porcine) (Heparin -) 5,000 unit SQ BID [facility] Last Admin: 03/27/17 09:35 Dose: Not Given Levothyroxine Sodium (Synthroid -) 25 mcg PO DAILY@0700 [facility] Last Admin: 03/27/17 06:00 Dose: 25 mcg Methylnaltrexone [place] (Relistor -) 12 mg SQ DAILY [facility] Last Admin: 03/27/17 09:37 Dose: 12 mg Miscellaneous (Duragesic Patch Waste) 1 each TD PRN PRN Last Admin: 03/27/17 09:45 Dose: 1 each Ondansetron HCl (Zofran Injection) 4 mg IVPB Q8H PRN PRN Reason: NAUSEA AND/OR VOMITING Pantoprazole Sodium (Protonix -) 40 mg PO DAILY [facility] Last Admin: 03/27/17 09:36 Dose: 40 mg Polyethylene Glycol (Miralax (For Daily Use) -) 17 gm PO BID [facility] Last Admin: 03/27/17 09:36 Dose: 17 gm Trazodone HCl (Desyrel -) 200 mg PO [facility] Last Admin: 03/27/17 00:15 Dose: 200 mg - Objective Vital Signs: Vital Signs Temperature 97.3 F L 03/27/17 10:00 Pulse Rate 96 H 03/27/17 10:00 Respiratory Rate 18 03/27/17 10:00 Blood Pressure 91/48 03/27/17 10:00 O2 Sat by Pulse Oximetry (%) 96 03/26/17 21:00 Constitutional: Yes: Well Nourished, No Distress, Anxious Eyes: Yes: Conjunctiva Clear HENT: Yes: Atraumatic, Normocephalic Neck: Yes: Supple Cardiovascular: Yes: Regular Rate and Rhythm Respiratory: Yes: Regular, CTA Bilaterally Gastrointestinal: Yes: Soft Edema: No Neurological: Yes: Alert, Oriented Labs: CBC, BMP 03/27/17 06:55 03/25/17 06:00 INR, PTT INR 1.09 (0.82-1.09) 03/24/17 04:52 Problem List - Problems (1) Leukopenia Assessment/Plan: Likely benign etiology, drug induced to be followed , needs repeat CBC in week to 10days Office follow up advised. Code(s): D72.819 - DECREASED WHITE BLOOD CELL COUNT, UNSPECIFIED (2) Pneumonia Assessment/Plan: being discharged on PO abx Code(s): J18.9 - PNEUMONIA, UNSPECIFIED ORGANISM Qualifiers: Pneumonia type: due to unspecified organism Laterality: bilateral Lung location: lower lobe of lung Qualified Code(s): J18.9 - Pneumonia, unspecified organism (3) Fibromyalgia Code(s): M79.7 - FIBROMYALGIA (4) Constipated Assessment/Plan: s/p methylnaltrexone now resolved Code(s): K59.00 - CONSTIPATION, UNSPECIFIED Qualifiers: Constipation type: unspecified constipation type Qualified Code(s): K59.00 - Constipation, unspecified (5) Hypothyroid Code(s): E03.9 - HYPOTHYROIDISM, UNSPECIFIED
[2017-03-27 18:21] VITALS: BP 120/72; PULSE 74; TEMP 97.7
== END 2017-03-27 18:27 | disposition home or self-care (01) | DRG 392 ==
LOC: JER 04:17 → JERBED 06:52 → J5S 08:28
PROVIDERS: ADMIT Family Medicine; ATTEND Family Medicine
DX: K59.03 Drug induced constipation (principal); J98.11 Atelectasis; E03.9 Hypothyroidism, unspecified; F41.9 Anxiety disorder, unspecified; F32.9 Major depressive disorder, single episode, unspecified; M79.7 Fibromyalgia; K59.00 Constipation, unspecified; R63.0 Anorexia; R63.4 Abnormal weight loss; T40.2X5A Adverse effect of other opioids, initial encounter; Z98.84 Bariatric surgery status; D72.819 Decreased white blood cell count, unspecified
CPT/HCPCS: 36415; 71010-TC; 74020-TC; 74176-TC; 80053; 81003; 81015; 82150; 82550; 82607; 82746; 83690; 83735; 84439; 84443; 84481; 84484; 85025; 85610; 87040; 87086; 93005; 93010; 93225; 93226; 93306-TC; 94010; 94640; 97116-GP; 97161-GP; 99284-25; J1644

== ENCOUNTER 2017-05-02 17:44 | Emergency (ER) | payer OTHER, MEDICARE ==
[2017-05-02 17:49] VITALS: PULSE 78; BMI 22.4
--- NOTE | 2017-05-02 18:08 | PDOC ---
History of Present Illness <Luis Sepulveda - Last Filed: 05/02/17 18:07> - General Exam Limitations: No Limitations - History of Present Illness Initial Comments: 05/02/17 18:26 The patient is a 61 year old female, with a significant past medical history of gastric bypass, hiatal hernia, hypothyroidism, anxiety, depression, fibromyalgia (on fentanyl patch) who presents to the emergency department with left upper quadrant abdominal pain beginning approx. one hour ago after dinner. The patient describes the abdominal pain as a "pressure" that began suddenly and radiates to the back and up the left arm. The patient reports that the pain is unchanged with movement and that nothing makes the pain better or worse. She reports associated symptoms of nausea secondary to the abdominal pain. She reports normal bowel movements. She denies recent fevers, chills, headache or dizziness. She denies recent vomit, diarrhea or constipation. She denies recent chest pain or shortness of breath. <Dannie Del Valle - Last Filed: 05/02/17 18:46> <Nicki Haro - Last Filed: 05/02/17 21:00> - General Chief Complaint: Pain Stated Complaint: CHEST PAIN Time Seen by Provider: 05/02/17 18:02 Past History - Past Medical History Anemia: No Asthma: No Cancer: No Cardiac Disorders: No CVA: No COPD: No CHF: No Dementia: No Diabetes: No GI Disorders: Yes (GERD) Disorders: No HTN: No Hypercholesterolemia: Yes (triglycerides) Liver Disease: No Psychiatric Problems: Yes (ANXIETY, DEPRESSION.) Seizures: No Thyroid Disease: Yes (PARTIAL THYROIDECTOMY 2012) Other medical history: FIBROMYALGIA - Surgical History Abdominal Surgery: Yes (gastric bypass) Appendectomy: No Cardiac Surgery: No Cholecystectomy: No Lung Surgery: No Neurologic Surgery: No Orthopedic Surgery: No - Immunization History Immunization Up to Date: No - Psycho/Social/Smoking Cessation Hx Anxiety: No Suicidal Ideation: No Smoking Status: No Smoking History: Never smoked Have you smoked in the past 12 months: No Number of Cigarettes Smoked Daily: 0 Cigars Per Day: 0 Hx Alcohol Use: No Drug/Substance Use Hx: No Substance Use Type: None Hx Substance Use Treatment: No <Luis Sepulveda - Last Filed: 05/02/17 18:07> <Dannie Del Valle - Last Filed: 05/02/17 18:46> <Nicki Haro - Last Filed: 05/02/17 21:00> - Past Medical History Allergies/Adverse Reactions: Allergies Allergy/AdvReac Type Severity Reaction Status Date / Time No Known Drug Allergies Allergy Verified 05/02/17 17:49 Home Medications: Ambulatory Orders Clonazepam [KlonoPIN] 1 mg PO BID 07/13/13 Trazodone HCl [Desyrel -] 200 mg PO HS 07/13/13 FENTANYL 50mcg PATCH [DURAGESIC 50 mcg PATCH -] 50 mcg TD Q2D 09/20/14 Gabapentin 600 mg PO TID 11/02/16 Desipramine HCl [Norpramin -] 25 mg PO DAILY 03/24/17 Cefuroxime Axetil [Ceftin -] 250 mg PO BID #10 tablet 03/26/17 Ipratropium/Albuterol Sulfate [Combivent Respimat Inhal [place]] 4 gm IH QID #1 aer.w.adap 03/26/17 Levothyroxine [Synthroid -] 25 mcg PO DAILY@0700 #30 tablet 03/26/17 Methylnaltrexone [place] [Relistor -] 12 mg SQ DAILY #30 kit 03/26/17 Pantoprazole Sodium [Protonix -] 40 mg PO DAILY #30 tablet.ec 03/26/17 Polyethylene Glycol 3350 [Miralax 119 gm Btl -] 17 gm PO BID #1 bottle 03/26/17 Review of Systems - Review of Systems Comments:: 05/02/17 18:39 GENERAL/CONSTITUTIONAL: No fever or chills. No weakness. HEAD, EYES, EARS, NOSE AND THROAT: No change in vision. No ear pain or discharge. No sore throat. CARDIOVASCULAR: No chest pain or shortness of breath. RESPIRATORY: No cough, wheezing, or hemoptysis. GASTROINTESTINAL: +Nausea. +Left upper quadrant abdominal pain. No vomiting, diarrhea or constipation. GENITOURINARY: No dysuria, frequency, or change in urination. MUSCULOSKELETAL: No joint or muscle swelling or pain. No neck or back pain. SKIN: No rash NEUROLOGIC: No headache, vertigo, loss of consciousness, or change in strength/ sensation. ENDOCRINE: No increased thirst. No abnormal weight change. HEMATOLOGIC/LYMPHATIC: No anemia, easy bleeding, or history of blood clots. ALLERGIC/IMMUNOLOGIC: No hives or skin allergy. <Sobia Del Valleian - Last Filed: 05/02/17 18:46> *Physical Exam - Vital Signs Last Vital Signs Temp Pulse Resp BP Pulse Ox 78 20 145/73 98 05/02/17 17:48 05/02/17 17:48 05/02/17 17:48 05/02/17 17:48 <Luis Sepulveda - Last Filed: 05/02/17 18:07> - Vital Signs Last Vital Signs Temp Pulse Resp BP Pulse Ox 78 20 145/73 98 05/02/17 17:48 05/02/17 17:48 05/02/17 17:48 05/02/17 17:48 - Physical Exam Comments: 05/02/17 18:41 GENERAL: Awake, alert, and fully oriented. HEAD: No signs of trauma EYES: PERRLA, EOMI, sclera anicteric, conjunctiva clear ENT: Auricles normal inspection, hearing grossly normal, nares patent, oropharynx clear without exudates. Moist mucosa NECK: Normal ROM, supple, no lymphadenopathy, JVD, or masses LUNGS: Breath sounds equal, clear to auscultation bilaterally. No wheezes, and no crackles HEART: Regular rate and rhythm, normal S1 and S2, no murmurs, rubs or gallops ABDOMEN: +Left upper quadrant tenderness. Soft, normoactive bowel sounds. No guarding, no rebound. No masses EXTREMITIES: Normal range of motion, no edema. No clubbing or cyanosis. No cords, erythema, or tenderness NEUROLOGICAL: Cranial nerves II through XII grossly intact. Normal speech, normal gait SKIN: Warm, Dry, normal turgor, no rashes or lesions noted. <Dannie Del Valle - Last Filed: 05/02/17 18:46> - Vital Signs Last Vital Signs Temp Pulse Resp BP Pulse Ox 78 20 145/73 98 05/02/17 17:48 05/02/17 17:48 05/02/17 17:48 05/02/17 17:48 <Nicki Haro - Last Filed: 05/02/17 21:00> Heart Score/ECG Review #1 05/02/17 18:46 Normal Sinus Rhythm Normal ECG Vent rate 79 bpm VT interval 148 ms QRS duration 84 ms QT/QTc 382/438 ms P-R-T axes 13 -3 32 <Dannie Del Valle - Last Filed: 05/02/17 18:46> ED Treatment Course - LABORATORY CBC & Chemistry Diagram: 05/02/17 18:35 05/02/17 18:35 <Dannie Del Valle - Last Filed: 05/02/17 18:46> - LABORATORY CBC & Chemistry Diagram: 05/02/17 18:35 05/02/17 18:35 - ADDITIONAL ORDERS Additional order review: Laboratory Results 05/02/17 05/02/17 18:35 18:35 INR 1.04 Sodium 144 Potassium 4.0 Chloride 106 Carbon Dioxide 33 H Anion Gap 5 L BUN 18 Creatinine 0.7 Creat Clearance w eGFR > 60 Random Glucose 114 H D Calcium 8.9 Total Bilirubin 0.3 AST 33 D ALT 17 Alkaline Phosphatase 78 Creatine Kinase 31 Troponin I < 0.02 Total Protein 6.8 Albumin 3.3 L Lipase 105 05/02/17 18:35 RBC 3.84 MCV 89.9 MCHC 32.9 RDW 14.7 MPV 8.0 D Neutrophils % 71.1 Lymphocytes % 20.2 Monocytes % 5.6 Eosinophils % 2.5 Basophils % 0.6 - Medications Given in the ED: ED Medications Discontinued Medications Generic Name Dose Route Start Last Admin Trade Name Naresh PRN Reason Stop Dose Admin Dicyclomine HCl 20 mg 05/02/17 18:59 05/02/17 19:51 Bentyl Injection - IM 05/02/17 19:00 20 mg ONCE ONE Administration Simethicone 160 mg 05/02/17 18:25 05/02/17 18:47 Mylicon - PO 05/02/17 18:26 160 mg ONCE ONE Administration <Nicki Haro - Last Filed: 05/02/17 21:00> Medical Decision Making - Medical Decision Making 05/02/17 20:59 I received pt on signout. SHe is feeling better at this time. She has had little to eat today, as she has been depressed, as per pt and her . She is requesting IVF, so I will teat her with 500ml NSS. She is stable for discharge after the IV bolus. Pt has no pain at this time. She understands that this is all likely gas pain. Abd FUA demonstrates Gas throughout bowel. Concentrated at the LUQ and splenic flexure. <Nicki Haro - Last Filed: 05/02/17 21:00> *DC/Admit/Observation/Transfer - Attestations Physician Attestion: 05/02/17 18:07 I, Dr. Luis Sepulveda, attest that this document has been prepared under my direction and personally reviewed by me in its entirety. I further attest, that it accurately reflects all work, treatment, procedures and medical decision -making performed by me. <Luis Sepulveda - Last Filed: 05/02/17 18:07> - Attestations Scribe Attestion: 05/02/17 18:43 Documentation prepared by Dannie Del Valle, acting as medical record librarian for Luis Sepulveda DO. <Dannie Del Valle - Last Filed: 05/02/17 18:46> - Discharge Dispostion Admit: No <Nicki Haro - Last Filed: 05/02/17 21:00> Diagnosis at time of Disposition: Gas pain - Discharge Dispostion Disposition: HOME Condition at time of disposition: Improved - Patient Instructions Printed Discharge Instructions: DI for Dyspepsia
[2017-05-02] MEDS ORDERED: SIMETHICONE 80 MG TAB.CHEW (FP) PO ONE (18:25)
[2017-05-02 18:43] LABS: BASOPHIL 0.6 % (0-2.0); EOSINOPHIL 2.5 % (0-4.5); MCH 29.6 pg (25.7-33.7); MCHC 32.9 g/dl (32.0-36.0); MEAN CELL VOLUME 89.9 fl (80-96); NEUTROPHILS 71.1 % (42.8-82.8); PLATELET COUNT 246 K/MM3 (134-434); RDW 14.7 % (11.6-15.6); WHITE BLOOD COUNT 5.6 K/mm3 (4.0-10.0)
[2017-05-02 18:56] LABS: INR 1.04 (0.82-1.09); PROTHROMBIN TIME (PATIENT) 11.4 SEC (9.98-11.88)
[2017-05-02] MEDS ORDERED: DICYCLOMINE HCL 20 MG/2 ML AMPUL IM ONE (18:59)
[2017-05-02 19:13] LABS: ALBUMIN 3.3 g/dl (3.4-5.0); ANION GAP 5 (8-16); BILIRUBIN,TOTAL 0.3 mg/dL (0.2-1.0); CALCIUM 8.9 mg/dL (8.5-10.1); CO2 33 mmol/L (21-32); CPK 31 IU/L (26-192); CREATININE 0.7 mg/dL (0.55-1.02); GLUCOSE,RANDOM 114 mg/dL (74-106); SGOT/AST 33 U/L (15-37); SGPT/ALT 17 U/L (12-78); TOT PROT 6.8 g/dl (6.4-8.2)
[2017-05-02 19:16] LABS: ALK PHOS 78 U/L (45-117); TROPONIN I < 0.02 ng/ml (0.00-0.05)
[2017-05-02] MEDS ORDERED: MAG HYDROX/AL HYDROX/SIMETH 30 ML UNIT-DOSE CUP PO ONE (20:37)
[2017-05-02] MEDS ORDERED: MAG HYDROX/AL HYDROX/SIMETH 30 ML UNIT-DOSE CUP ONE (20:43)
[2017-05-02] MEDS ORDERED: SODIUM CHLORIDE 0.9% 500 ML INFUS.BAG IV ONE (20:50)
[2017-05-02 21:52] VITALS: BP 140/70; TEMP 98.4
--- NOTE | 2017-05-03 19:02 | EKG ---
Test Reason : Blood Pressure : / mmHG Vent. Rate : 079 BPM Atrial Rate : 079 BPM P-R Int : 148 ms QRS Dur : 084 ms QT Int : 382 ms P-R-T Axes : 013 -03 032 degrees QTc Int : 438 ms NORMAL SINUS RHYTHM NORMAL ECG WHEN COMPARED WITH ECG OF 24-MAR-2017 06:44, T WAVE VARIATION Confirmed by SHELLEY MARTELL MD ([id number]) on 05/03/2017 7:01:58 PM Referred By: Confirmed By:SHELLEY MARTELL MD
== END 2017-05-02 21:53 | disposition home or self-care (01) ==
LOC: JER 17:44
PROC: 3E023GC Introduction of Other Therapeutic Substance into Muscle, Percutaneous Approach (ICD-10-PCS; principal; 2017-05-02)
DX: R14.1 Gas pain (principal); R10.13 Epigastric pain; K21.9 Gastro-esophageal reflux disease without esophagitis; E03.9 Hypothyroidism, unspecified; K44.9 Diaphragmatic hernia without obstruction or gangrene
CPT/HCPCS: 36415; 71020-TC; 74020-TC; 80053; 83690; 84484; 85025; 85610; 93005; 93010; 96372; 99282-25